=== PATIENT | female | born 1950 | race Caucasian/White ===

== ENCOUNTER 2017-09-25 09:14 | Observation (INO) ==
--- NOTE | 2017-09-25 09:25 | Emergency Department Note ---
Disposition Clinical Impression: UTI (urinary tract infection), Falls, Confusion Disposition: Still a Patient Condition: Fair Referrals: Bao Hauser [Primary Care Provider] - Forms: ED Satisfaction Letter General Adult HPI - General Chief complaint: ED Fall Stated complaint: fall, eye issues Time Seen by Provider: 09/25/17 09:17 Nursing Notes Reviewed: Yes Vital Signs Reviewed: Yes - Related Data Home Medications Medication Instructions Recorded Confirmed Atenolol 100 mg PO DAILY 08/18/16 12/13/16 Ezetimibe [Zetia] 10 mg PO DAILY 08/18/16 12/13/16 Fenofibrate Nanocrystallized 145 mg PO DAILY 08/18/16 12/13/16 [Tricor] Levothyroxine [Synthroid] 50 mcg PO DAILY 08/18/16 12/13/16 OxyCODONE/APAP 10/325 [Percocet 1 tab PO Q6HR PRN 08/18/16 12/13/16 10/325 MG] Rosuvastatin [Crestor] 20 mg PO HS 08/18/16 12/13/16 Sertraline [Zoloft] 100 mg PO DAILY 08/18/16 12/13/16 amLODIPine [Norvasc] 5 mg PO DAILY 08/18/16 12/13/16 hydroCHLOROthiazide 50 mg PO DAILY 08/18/16 12/13/16 [Hydrochlorothiazide] Aspirin [Lo-Dose Aspirin EC] 81 mg PO DAILY 12/13/16 12/13/16 Cholecalciferol (D-3) [Vitamin D] 1,000 unit PO DAILY 12/13/16 12/13/16 Cyanocobalamin (Vitamin B-12) 1,000 mcg PO DAILY 12/13/16 12/13/16 [Vitamin B12] Diclofenac Epolamine [Flector] 1 patch TD Q12H 12/13/16 12/13/16 Previous Rx's Medication Instructions Recorded Azithromycin [Zithromax] 0 mg PO DAILY #6 tablet 08/08/17 Benzonatate [Tessalon] 200 mg PO TID #30 capsule 08/08/17 Promethazine/Codeine 5 ml PO Q8HR PRN 6 Days #120 ml 08/08/17 [Phenergan/Codeine] Allergies Allergy/AdvReac Type Severity Reaction Status Date / Time ciprofloxacin [From Cipro] Allergy Rash Verified 08/08/17 12:49 prednisone Allergy Rash Verified 08/08/17 12:49 Sulfa (Sulfonamide Allergy Rash Verified 08/08/17 12:49 Antibiotics) Past Medical History - Past Medical History Medical history: Reports: CVA, hyperlipidemia, hypertension, thyroid disease Surgical history: Reports: appendectomy, carotid endarterectomy, herniorrhaphy, hysterectomy Psychiatric history: Reports: anxiety, depression ADDICTION SPECIALIST history: Reports: no ADDICTION SPECIALIST history - Social History Smoking Status: Never smoker Smokeless Tobacco Status: No Alcohol use: Reports: none Drug use: Reports: none Course Vital Signs Temperature 97.7 F 09/25/17 09:16 Pulse Rate 80 09/25/17 09:16 Respiratory Rate 18 09/25/17 09:16 Blood Pressure 122/69 09/25/17 09:16 O2 Sat by Pulse Oximetry 96 09/25/17 09:16 Temperature 97.7 F 09/25/17 09:16 Pulse Rate 80 09/25/17 09:16 Respiratory Rate 18 09/25/17 09:16 Blood Pressure 122/69 09/25/17 09:16 O2 Sat by Pulse Oximetry 96 09/25/17 09:28 Oxygen Delivery Oxygen Delivery Room Air Medical Decision Making - MDM Narrative Medical decision making narrative: Chest X-Ray 09/25/17 09:18 IMPRESSION: No acute process. D/ / Mark Harkins MD / Mark Harkins MD Interpreting Provider: Mark Harkins MD Head CT 09/25/17 09:22 IMPRESSION: No acute intracranial abnormality. D/ / Mark Harkins MD / Mark Harkins MD Interpreting Provider: Mark Harkins MD [id number]: Labs are returning except for blood sugar everything looks pretty good there. Waiting on urinalysis chest x-ray and CT are nonacute. 1130 hrs.: Patient does have a UTI also. We started her on antibiotics. We have spoke to her about coming in the hospital she is in agreement, nursing home social worker seen her and said she would qualify for home health care. We will bring her into the hospital status post fall vertigo and UTI. She is in agreement with plan. Hospitalist as accepted patient for admission. - Lab Data Result diagrams: 09/25/17 09:46 09/25/17 09:46 Lab Results 09/25/17 09/25/17 09/25/17 Range/Units 09:25 09:46 09:46 WBC 5.8 (4.3-11.1) K/mcL RBC 4.45 (3.82-4.97) M/mcL Hgb 13.0 (11.5-15.4) g/dL Hct 38.6 (35.3-44.9) % MCV 86.7 (83.0-100.0) fL MCH 29.2 (28.0-33.3) pg MCHC 33.7 (31.6-35.5) g/dL RDW 13.8 (11.5-14.5) % Plt Count 332 (140-400) K/mcL MPV 8.9 L (9.4-12.4) fL Immature Gran % 0.3 (0-4) % Seg Neutrophils % 60.4 % Lymphocytes % 27.5 % Monocytes % 8.3 % Eosinophils % 3.3 % Basophils % 0.2 % Neutrophils # 3.5 (1.6-8.9) K/mcL Lymphocytes # 1.6 (0.6-4.6) K/mcL Monocytes # 0.5 (0.0-1.3) K/mcL Eosinophils # 0.2 (0.0-0.6) K/mcL Basophils # 0.0 (0.0-0.2) K/mcL PT 13.1 H (9.4-12.1) Seconds INR 1.2 APTT 34.2 (26.0-36.0) Seconds Sodium (136-145) mEq/L Potassium (3.5-5.1) mEq/L Chloride (98-107) mEq/L Carbon Dioxide (23-29) mEq/L BUN (8-23) mg/dL Creatinine (0.60-1.20) mg/dL Est GFR ( Amer) (> 60) Est GFR (Non-Af Amer) (> 60) BUN/Creatinine Ratio (6-26) Glucose (70-105) mg/dL POC Glucose 198 H (70-99) mg/dL Calculated Osmolality (280-300) Calcium (8.6-10.3) mg/dL Troponin I (< 0.04) ng/mL TSH (0.340-5.600) mcIU/mL Urine Color (Yellow) Urine Clarity (Clear) Urine pH (5.0-8.0) pH Units Ur Specific [place] (1.010-1.025) Urine Protein (Neg-Trace) mg/dL Urine Glucose (UA) (Normal) mg/dL Urine Ketones (Negative) mg/dL Urine Blood (Negative) Urine Nitrite (Negative) Urine Bilirubin (Negative) Urine Urobilinogen (Normal) mg/dL Ur Leukocyte Esterase (Negative) Urine Microscopic WBC (0-3) per hpf Ur Squamous Epith Cells (None-Few) per lpf Urine Bacteria (None-Few) per hpf Hyaline Casts (None-Few) per lpf Urine Mucus (Few) Ur Culture Indicated? (NO) 09/25/17 09/25/17 Range/Units 09:46 11:15 WBC (4.3-11.1) K/mcL RBC (3.82-4.97) M/mcL Hgb (11.5-15.4) g/dL Hct (35.3-44.9) % MCV (83.0-100.0) fL MCH (28.0-33.3) pg MCHC (31.6-35.5) g/dL RDW (11.5-14.5) % Plt Count (140-400) K/mcL MPV (9.4-12.4) fL Immature Gran % (0-4) % Seg Neutrophils % % Lymphocytes % % Monocytes % % Eosinophils % % Basophils % % Neutrophils # (1.6-8.9) K/mcL Lymphocytes # (0.6-4.6) K/mcL Monocytes # (0.0-1.3) K/mcL Eosinophils # (0.0-0.6) K/mcL Basophils # (0.0-0.2) K/mcL PT (9.4-12.1) Seconds INR APTT (26.0-36.0) Seconds Sodium 137 (136-145) mEq/L Potassium 3.7 (3.5-5.1) mEq/L Chloride 101 (98-107) mEq/L Carbon Dioxide 25 (23-29) mEq/L BUN 15 (8-23) mg/dL Creatinine 0.56 L (0.60-1.20) mg/dL Est GFR ( Amer) > 60 (> 60) Est GFR (Non-Af Amer) > 60 (> 60) BUN/Creatinine Ratio 27 H (6-26) Glucose 182 H (70-105) mg/dL POC Glucose (70-99) mg/dL Calculated Osmolality 289 (280-300) Calcium 9.5 (8.6-10.3) mg/dL Troponin I < 0.03 (< 0.04) ng/mL TSH 2.188 (0.340-5.600) mcIU/mL Urine Color Yellow (Yellow) Urine Clarity Cloudy A (Clear) Urine pH 6.0 (5.0-8.0) pH Units Ur Specific [place] 1.027 H (1.010-1.025) Urine Protein Negative (Neg-Trace) mg/dL Urine Glucose (UA) Normal (Normal) mg/dL Urine Ketones Negative (Negative) mg/dL Urine Blood Negative (Negative) Urine Nitrite Negative (Negative) Urine Bilirubin Negative (Negative) Urine Urobilinogen Normal (Normal) mg/dL Ur Leukocyte Esterase Moderate H (Negative) Urine Microscopic WBC 15-30 H (0-3) per hpf Ur Squamous Epith Cells Few (None-Few) per lpf Urine Bacteria Moderate H (None-Few) per hpf Hyaline Casts None Seen (None-Few) per lpf Urine Mucus Few (Few) Ur Culture Indicated? YES A (NO) Attestation Statement - Attestation Attestation: This documentation is done with the assistance of Dragon dictation. Despite efforts made to ensure accuracy, there may be inaccuracies in medical management trainer or spelling and typographical errors. I examined this patient and my medical decision-making was reviewed with the Resident Physician. I agree with the documented findings, disposition and treatment plan as described except to the extent set forth below. Patient seen and evaluated on arrival with EMS and Dr. Hernandez, I agree with his evaluation management plan, I supervised the care the patient's stay. Patient presents today from home where she lives alone she had 2 falls last 24 hours when she think she tripped over dog though she is uncertain she has had intermittent dizziness since been on any for where from couple days to couple weeks difficult to say with her history medics also stated same. She is also complaining of intermittent chest pain going on and off for a couple weeks versus a couple years. She denies any pain at this time she does have vertiginous symptoms at this time when she moves from the cart over to the bed. She has also had some blurriness in her left eye which she says been on for a few weeks. She states she is also worried that she could have had a stroke here in the past but it is difficult to pin her down on symptoms and nothing was in the last 24 hours. We will do a cardiac workup on her neurologic workup , and involve nursing home social worker in her care and determine best disposition once her testing is back. She is in agreement with this plan.
--- NOTE | 2017-09-25 09:26 | Emergency Department Note ---
Disposition Clinical Impression: Confusion UTI (urinary tract infection) Qualifiers: Urinary tract infection type: site unspecified Hematuria presence: without hematuria Qualified Code(s): N39.0 - Urinary tract infection, site not specified Falls Qualifiers: Encounter type: initial encounter Qualified Code(s): W19.XXXA - Unspecified fall, initial encounter Disposition: Still a Patient Condition: Fair Referrals: Bao Hauser [Primary Care Provider] - Forms: ED Satisfaction Letter Time of Disposition: 11:56 General Adult HPI - General Chief complaint: ED Fall Stated complaint: fall, eye issues Time Seen by Provider: 09/25/17 09:17 Nursing Notes Reviewed: Yes Vital Signs Reviewed: Yes - History of Present Illness HPI Narrative: 67-year-old female presents from home via EMS for evaluation of multiple complaints. 1: Patient has fallen twice today and has a history of falls. She believes her fall today was mechanical in that she tripped over her dog. She denies any head trauma. 2: Patient has been having some lightheadedness. She also notes that she has been deviating to the right with ambulation. She is concerned she may have had a stroke. Patient is having difficulty in pointing duration of onset. This ranges anywhere from several days to several weeks to 1 year. 3: Patient's been having intermittent chest tightness with associated nausea, dyspnea, with intermittent radiation to her left jaw. She is having difficulty in pinpointing the duration of onset. This ranges anywhere from several days to several weeks to 1 year. She remotely followed with her cookie mixer helper, Dr. Maradiaga, when he was up in [place]. 4: Patient states she is having blurry vision of her left eye. She states this is been ongoing for the last several weeks. 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 PMH: Hypertension, hyperlipidemia, hypothyroidism, history of sarcoidosis ROS: Positive: As above. 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 She is not concerned about this today. Negative: Fever, chills, vomiting, palpitations - Related Data Home Medications Medication Instructions Recorded Confirmed Atenolol 100 mg PO DAILY 08/18/16 12/13/16 Ezetimibe [Zetia] 10 mg PO DAILY 08/18/16 12/13/16 Fenofibrate Nanocrystallized 145 mg PO DAILY 08/18/16 12/13/16 [Tricor] Levothyroxine [Synthroid] 50 mcg PO DAILY 08/18/16 12/13/16 OxyCODONE/APAP 10/325 [Percocet 1 tab PO Q6HR PRN 08/18/16 12/13/16 10/325 MG] Rosuvastatin [Crestor] 20 mg PO HS 08/18/16 12/13/16 Sertraline [Zoloft] 100 mg PO DAILY 08/18/16 12/13/16 amLODIPine [Norvasc] 5 mg PO DAILY 08/18/16 12/13/16 hydroCHLOROthiazide 50 mg PO DAILY 08/18/16 12/13/16 [Hydrochlorothiazide] Aspirin [Lo-Dose Aspirin EC] 81 mg PO DAILY 12/13/16 12/13/16 Cholecalciferol (D-3) [Vitamin D] 1,000 unit PO DAILY 12/13/16 12/13/16 Cyanocobalamin (Vitamin B-12) 1,000 mcg PO DAILY 12/13/16 12/13/16 [Vitamin B12] Diclofenac Epolamine [Flector] 1 patch TD Q12H 12/13/16 12/13/16 Previous Rx's Medication Instructions Recorded Azithromycin [Zithromax] 0 mg PO DAILY #6 tablet 08/08/17 Benzonatate [Tessalon] 200 mg PO TID #30 capsule 08/08/17 Promethazine/Codeine 5 ml PO Q8HR PRN 6 Days #120 ml 08/08/17 [Phenergan/Codeine] Allergies Allergy/AdvReac Type Severity Reaction Status Date / Time ciprofloxacin [From Cipro] Allergy Rash Verified 08/08/17 12:49 prednisone Allergy Rash Verified 08/08/17 12:49 Sulfa (Sulfonamide Allergy Rash Verified 08/08/17 12:49 Antibiotics) All systems ED: reviewed and negative except as stated. Review of Systems: As Per HPI Past Medical History - Past Medical History Medical history: Reports: CVA, hyperlipidemia, hypertension, thyroid disease Surgical history: Reports: appendectomy, carotid endarterectomy, herniorrhaphy, hysterectomy Psychiatric history: Reports: anxiety, depression SCHEDULER CONVEYOR history: Reports: no SCHEDULER CONVEYOR history - Social History Smoking Status: Never smoker Smokeless Tobacco Status: No Alcohol use: Reports: none Drug use: Reports: none Physical Exam Vital Signs Reviewed General: Patient is alert, oriented, and in no acute distress. Head: atraumatic, normocephalic Eye: normal appearance, no scleral icterus, no conjunctival injection ENT: mucous membranes moist, normal external ear exam Neck: normal inspection, trachea midline, full ROM. Remote well-healed postsurgical scar on the right side patient's neck. Chest: normal inspection, symmetric chest rise Respiratory: Good respiratory effort. Bilateral breath sounds are clear without wheezing, crackles, or rhonchi. Cardiovascular: Regular rate and rhythm. No clicks, rubs, gallops, or murmors. Normal heart sounds. Abdomen: Bowel sounds present normoactive. Abdomen is soft, nondistended. Diffuse abdominal tenderness. No guarding or rebound. No organomegaly noted. Remote abdominal surgical scar. Musculoskeletal: Spontaneously moving all extremities. Skin: warm, dry, intact. Neuro: Alert and oriented x4. Sensation light touch intact. Psych: Patient's affect is appropriate for situation. Course Course Narrative: EKG dated 09/25/17 at 09:23 interpreted as sinus rhythm with rate of 82. Normal intervals of IN 144, QRS 95, QTC 424. Left axis. LVH. Nonspecific ST-T changes. Compared to previous dated 04/10/2013 showing no acute ischemic changes comparison. CT head and chest x-ray unremarkable per radiology read. Serum hematology is unremarkable. Serum chemistries unremarkable. Urinalysis clinically concerning for urinary tract infection. Discussed the above with the patient. Though she is hard of hearing, she required multiple explanations in lay terms before she understood the situation. She appears more confused now than on initial presentation. She agrees for admission to the hospital for continued evaluation and management. Also recommend mental health social worker involvement. Chest X-Ray 09/25/17 09:18 IMPRESSION: No acute process. D/ / Mark Harkins MD / Mark Harkins MD Interpreting Provider: Mark Harkins MD Head CT 09/25/17 09:22 IMPRESSION: No acute intracranial abnormality. D/ / 09/25/2017 10:45:44 Mark Harkins MD / [email or web address] Interpreting Provider: Mark Harkins MD Vital Signs Temperature 97.7 F 09/25/17 09:16 Pulse Rate 80 09/25/17 09:16 Respiratory Rate 18 09/25/17 09:16 Blood Pressure 122/69 09/25/17 09:16 O2 Sat by Pulse Oximetry 96 09/25/17 09:16 Temperature 97.7 F 09/25/17 09:16 Pulse Rate 80 09/25/17 09:16 Respiratory Rate 18 09/25/17 09:16 Blood Pressure 122/69 09/25/17 09:16 O2 Sat by Pulse Oximetry 96 09/25/17 09:28 Oxygen Delivery Oxygen Delivery Room Air Medical Decision Making - Lab Data Result diagrams: 09/25/17 09:46 09/25/17 09:46 Lab Results 09/25/17 09/25/17 09/25/17 Range/Units 09:25 09:46 09:46 WBC 5.8 (4.3-11.1) K/mcL RBC 4.45 (3.82-4.97) M/mcL Hgb 13.0 (11.5-15.4) g/dL Hct 38.6 (35.3-44.9) % MCV 86.7 (83.0-100.0) fL MCH 29.2 (28.0-33.3) pg MCHC 33.7 (31.6-35.5) g/dL RDW 13.8 (11.5-14.5) % Plt Count 332 (140-400) K/mcL MPV 8.9 L (9.4-12.4) fL Immature Gran % 0.3 (0-4) % Seg Neutrophils % 60.4 % Lymphocytes % 27.5 % Monocytes % 8.3 % Eosinophils % 3.3 % Basophils % 0.2 % Neutrophils # 3.5 (1.6-8.9) K/mcL Lymphocytes # 1.6 (0.6-4.6) K/mcL Monocytes # 0.5 (0.0-1.3) K/mcL Eosinophils # 0.2 (0.0-0.6) K/mcL Basophils # 0.0 (0.0-0.2) K/mcL PT 13.1 H (9.4-12.1) Seconds INR 1.2 APTT 34.2 (26.0-36.0) Seconds Sodium (136-145) mEq/L Potassium (3.5-5.1) mEq/L Chloride (98-107) mEq/L Carbon Dioxide (23-29) mEq/L BUN (8-23) mg/dL Creatinine (0.60-1.20) mg/dL Est GFR ( Amer) (> 60) Est GFR (Non-Af Amer) (> 60) BUN/Creatinine Ratio (6-26) Glucose (70-105) mg/dL POC Glucose 198 H (70-99) mg/dL Calculated Osmolality (280-300) Calcium (8.6-10.3) mg/dL Troponin I (< 0.04) ng/mL TSH (0.340-5.600) mcIU/mL Urine Color (Yellow) Urine Clarity (Clear) Urine pH (5.0-8.0) pH Units Ur Specific [place] (1.010-1.025) Urine Protein (Neg-Trace) mg/dL Urine Glucose (UA) (Normal) mg/dL Urine Ketones (Negative) mg/dL Urine Blood (Negative) Urine Nitrite (Negative) Urine Bilirubin (Negative) Urine Urobilinogen (Normal) mg/dL Ur Leukocyte Esterase (Negative) Urine Microscopic WBC (0-3) per hpf Ur Squamous Epith Cells (None-Few) per lpf Urine Bacteria (None-Few) per hpf Hyaline Casts (None-Few) per lpf Urine Mucus (Few) Ur Culture Indicated? (NO) 09/25/17 09/25/17 Range/Units 09:46 11:15 WBC (4.3-11.1) K/mcL RBC (3.82-4.97) M/mcL Hgb (11.5-15.4) g/dL Hct (35.3-44.9) % MCV (83.0-100.0) fL MCH (28.0-33.3) pg MCHC (31.6-35.5) g/dL RDW (11.5-14.5) % Plt Count (140-400) K/mcL MPV (9.4-12.4) fL Immature Gran % (0-4) % Seg Neutrophils % % Lymphocytes % % Monocytes % % Eosinophils % % Basophils % % Neutrophils # (1.6-8.9) K/mcL Lymphocytes # (0.6-4.6) K/mcL Monocytes # (0.0-1.3) K/mcL Eosinophils # (0.0-0.6) K/mcL Basophils # (0.0-0.2) K/mcL PT (9.4-12.1) Seconds INR APTT (26.0-36.0) Seconds Sodium 137 (136-145) mEq/L Potassium 3.7 (3.5-5.1) mEq/L Chloride 101 (98-107) mEq/L Carbon Dioxide 25 (23-29) mEq/L BUN 15 (8-23) mg/dL Creatinine 0.56 L (0.60-1.20) mg/dL Est GFR ( Amer) > 60 (> 60) Est GFR (Non-Af Amer) > 60 (> 60) BUN/Creatinine Ratio 27 H (6-26) Glucose 182 H (70-105) mg/dL POC Glucose (70-99) mg/dL Calculated Osmolality 289 (280-300) Calcium 9.5 (8.6-10.3) mg/dL Troponin I < 0.03 (< 0.04) ng/mL TSH 2.188 (0.340-5.600) mcIU/mL Urine Color Yellow (Yellow) Urine Clarity Cloudy A (Clear) Urine pH 6.0 (5.0-8.0) pH Units Ur Specific [place] 1.027 H (1.010-1.025) Urine Protein Negative (Neg-Trace) mg/dL Urine Glucose (UA) Normal (Normal) mg/dL Urine Ketones Negative (Negative) mg/dL Urine Blood Negative (Negative) Urine Nitrite Negative (Negative) Urine Bilirubin Negative (Negative) Urine Urobilinogen Normal (Normal) mg/dL Ur Leukocyte Esterase Moderate H (Negative) Urine Microscopic WBC 15-30 H (0-3) per hpf Ur Squamous Epith Cells Few (None-Few) per lpf Urine Bacteria Moderate H (None-Few) per hpf Hyaline Casts None Seen (None-Few) per lpf Urine Mucus Few (Few) Ur Culture Indicated? YES A (NO) NIH Stroke Scale - Level of Consciousness LOC: Alert - LOC Questions LOC Questions: Answers both correctly - LOC Commands LOC Commands: Performs both correctly - Best Gaze Best Gaze: Normal - Visual Visual: No visual loss - Facial Palsy Facial Palsy: Normal - Motor Arms Motor Arm-Left: No drift for 10 seconds Motor Arm-Right: No drift for 10 seconds - Motor Legs Motor Leg-Left: No drift for 5 seconds Motor Leg-Right: No drift for 5 seconds - Limb Ataxia Limb Ataxia: Normal, No Ataxia - Sensory Sensory: Normal - Best Language Best Language: No aphasia - Dysarthria Dysarthria: Normal - Extinction and Inattention Extinction and Inattention: Normal - NIHSS Total Score NIHSS Total Score: 0
[2017-09-25 10:01] LABS: Basophils % 0.2 %; Eosinophils # 0.2 K/mcL (0.0-0.6); Eosinophils % 3.3 %; Hematocrit 38.6 % (35.3-44.9); Immature Granulocytes % 0.3 % (0-4); Lymphocytes # 1.6 K/mcL (0.6-4.6); Lymphocytes % 27.5 %; Mean Corpuscular HGB Conc 33.7 g/dL (31.6-35.5); Mean Corpuscular Hemoglobin 29.2 pg (28.0-33.3); Mean Corpuscular Volume 86.7 fL (83.0-100.0); Mean Platelet Volume 8.9 fL (9.4-12.4); Monocytes # 0.5 K/mcL (0.0-1.3); Monocytes % 8.3 %; Neutrophils # 3.5 K/mcL (1.6-8.9); Platelet Count 332 K/mcL (140-400); Red Blood Count 4.45 M/mcL (3.82-4.97); Red Cell Distribution Width 13.8 % (11.5-14.5); Segmented Neutrophils % 60.4 %
[2017-09-25 10:07] LABS: INR 1.2; Prothrombin Time 13.1 Seconds (9.4-12.1)
[2017-09-25 10:10] LABS: Activated Partial Thrombo Time 34.2 Seconds (26.0-36.0)
[2017-09-25 10:21] LABS: BUN/Creatinine Ratio 27 (6-26); Blood Urea Nitrogen 15 mg/dL (8-23); Calcium 9.5 mg/dL (8.6-10.3); Carbon Dioxide 25 mEq/L (23-29); Chloride 101 mEq/L (98-107); Glucose 182 mg/dL (70-105); Osmolality,Calculated 289 (280-300); Potassium 3.7 mEq/L (3.5-5.1); Sodium 137 mEq/L (136-145); eGFR For African Americans > 60 (> 60); eGFR For Non-African Americans > 60 (> 60)
[2017-09-25 10:22] LABS: Troponin I < 0.03 ng/mL (< 0.04)
[2017-09-25 10:35] LABS: Thyroid Stimulating Hormone 2.188 mcIU/mL (0.340-5.600)
[2017-09-25 11:24] LABS: Bilirubin,Urine Negative (Negative); Blood,Urine Negative (Negative); Clarity,Urine Cloudy (Clear); Color,Urine Yellow (Yellow); Glucose,Urine (UA) Normal (Normal); Ketones,Urine Negative (Negative); Leukocyte Esterase,Urine Moderate (Negative); Nitrite,Urine Negative (Negative); Protein,Urine Negative (Neg-Trace); Specific Gravity,Urine 1.027 (1.010-1.025); Urobilinogen,Urine Normal (Normal)
[2017-09-25 11:26] LABS: Hyaline Casts,Urine None Seen per lpf (None-Few); WBC,Urine 15-30 per hpf (0-3)
[2017-09-25 11:42] LABS: Mucus,Urine Few (Few); Squamous Epithelial Cell,Urine Few per lpf (None-Few)
[2017-09-25 11:45] LABS: Bacteria,Urine Moderate per hpf (None-Few)
[2017-09-25] MEDS ORDERED: cefTRIAXone 2,000 MG in Water for inj. (sterile) 20 ML 20 ML IVP ONE (12:02)
--- NOTE | 2017-09-25 13:33 | Internal Med History&Physical ---
Date of Encounter: 09/25/17 Time of Encounter: 11:00 Internal Medicine - H&P: HPI Chief complaint: Dizziness/falls Admitted From: Home History of present illness: Patient is a 67-year-old female with past medical history significant for sarcoidosis, hypertension, hyperlipidemia, and hypothyroid who presents to the ER on 09/25/17 due to dizziness and falls. Patient states that for approximately 4 weeks she has experienced dizziness and falls. Patient also reports of blurred vision in her left eye which she sees debeader for as an outpatient. In addition patient also reports of having headaches during this time period. She was concerned and decided come to the ER for evaluation. In the ER labs are unremarkable and urinalysis showed evidence of pyuria but patient is asymptomatic. CT of the head was also negative. Patient will be admitted to medical surgical floor for falls with dizziness Past Med Surg Social Fam HX - Past Medical History Medical history: CVA, hyperlipidemia, hypertension, thyroid disease Psychiatric history: anxiety, depression - Past Surgical History Surgical History: appendectomy, carotid endarterectomy, herniorrhaphy, hysterectomy Additional surgical history: abdominal hernia repair x5, Lap Sandro - Social History Smoking Status: Never smoker Smokeless Tobacco Status: No Alcohol use: none Drug use: none - Family History Mother Living Status: Hx Family Cardiac Disorders: Yes Father Living Status: Hx Family Cardiac Disorders: Yes Sister Hx Family Cardiac Disorders: Yes Brother Hx Family Cardiac Disorders: Yes Internal Medicine - H&P: Meds Atenolol 100 mg PO DAILY 08/18/16 [History] Ezetimibe [Zetia] 10 mg PO DAILY 08/18/16 [History] Levothyroxine [Synthroid] 50 mcg PO DAILY 08/18/16 [History] OxyCODONE/APAP 10/325 [Percocet 10/325 MG] 1 tab PO Q6HR PRN 08/18/16 [History] Rosuvastatin [Crestor] 20 mg PO HS 08/18/16 [History] Sertraline [Zoloft] 100 mg PO DAILY 08/18/16 [History] amLODIPine [Norvasc] 5 mg PO DAILY 08/18/16 [History] hydroCHLOROthiazide [Hydrochlorothiazide] 50 mg PO DAILY 08/18/16 [History] Aspirin [Lo-Dose Aspirin EC] 81 mg PO DAILY 12/13/16 [History] Cholecalciferol (D-3) [Vitamin D] 1,000 unit PO DAILY 12/13/16 [History] Cyanocobalamin (Vitamin B-12) [Vitamin B12] 1,000 mcg PO DAILY 12/13/16 [History ] Fenofibrate,Micronized [Antara] 200 mg PO DAILY 09/25/17 [History] 3 Allergy/AdvReac Type Severity Reaction Status Date / Time ciprofloxacin [From Cipro] Allergy Rash Verified 09/25/17 13:29 prednisone Allergy Rash Verified 09/25/17 13:29 Sulfa (Sulfonamide Allergy Rash Verified 09/25/17 13:29 Antibiotics) All Systems PM: A 10-system review of systems was performed and is negative for pertinent findings except as documented above in the HPI. - Constitutional Vitals: Temp Pulse Resp BP Pulse Ox 97.7 F 80 18 122/69 96 09/25/17 09:16 09/25/17 09:16 09/25/17 09:16 09/25/17 09:16 09/25/17 09:28 General appearance: Present: A&O X 3, no acute distress - Head Head exam: Present: atraumatic - Eye Pupils: Present: unequal - ENT ENT exam: Present: mucous membranes moist - Respiratory Respiratory exam: Present: CTAB. Absent: accessory muscle use, rales, rhonchi, wheezes - Cardiovascular Cardiovascular exam: Present: RRR, +S1, +S2. Absent: diastolic murmur, gallop, rubs, systolic murmur - GI/Abdominal GI/Abdominal exam: Present: normal bowel sounds, soft, no peritoneal signs. Absent: distended, tenderness - Extremities Exam Extremities exam: Absent: pedal edema - Neurological Exam Neurological exam: Present: oriented X3 - Psychiatric Psychiatric exam: Present: normal mood - Skin Skin exam: Present: normal color Internal Med - H&P Results - Labs CBC & Chem 7: 09/25/17 09:46 09/25/17 09:46 - Assessment and plan (1) Falls Current Visit: Yes Status: Acute Assessment and plan: Patient reports of multiple falls with dizziness CT of the head negative Due to patient's dizziness and report of blurred vision/headaches, will order MRI of brain Consult physical therapy for evaluation of falls Also monitor on telemetry Qualifiers: Encounter type: initial encounter Qualified Code(s): W19.XXXA - Unspecified fall, initial encounter (2) Nonhealing surgical wound Current Visit: No Status: Acute Assessment and plan: Will consult wound care Qualifiers: Encounter type: initial encounter Qualified Code(s): T81.89XA - Other complications of procedures, not elsewhere classified, initial encounter (3) Hypothyroid Current Visit: Yes Status: Acute Assessment and plan: Continue levothyroxine Qualifiers: Hypothyroidism type: unspecified Qualified Code(s): E03.9 - Hypothyroidism , unspecified (4) Hyperlipidemia Current Visit: Yes Status: Acute Assessment and plan: Continue statin Qualifiers: Hyperlipidemia type: unspecified Qualified Code(s): E78.5 - Hyperlipidemia , unspecified (5) Mood disorder Current Visit: Yes Status: Acute Assessment and plan: Continue SSRI (6) Hypertension Current Visit: No Status: Acute Assessment and plan: Continue Norvasc and atenolol Qualifiers: Hypertension type: essential hypertension Qualified Code(s): I10 - Essential (primary) hypertension (7) DVT prophylaxis Current Visit: No Status: Acute Assessment and plan: Subcutaneous heparin - Time Spent With Patient Total time spent is greater than 50% in coordination of care (as documented) at patient's floor/unit and/or counseling patient:
[2017-09-25] MEDS ORDERED: Naloxone 0.4 MG/ML INJ IVP PRN (14:34)
--- NOTE | 2017-09-25 18:41 | Electrocardiograph Report ---
[place] [id number] Test Date: 2017-09-25 Pat Name: Ana Rosa Main Department: 104 Room: [facility] Gender: F Buffer Chrome: [facility] : 1950 Requested By: Serjio Franco Order Number: [id number] Reading MD: Ismael Dooley Measurements Intervals [place] Rate: 82 P: -26 [place]: 144 QRS: -7 QRSD: 95 T: 57 QT: 385 QTc: 424 Interpretive Statements SINUS RHYTHM VOLTAGE CRITERIA FOR LVH Electronically Signed On 09-25-2017 18:40:01 EDT by Ismael Dooley
[2017-09-25] MEDS: *HR* Heparin 5,000 UNIT/ML VIAL SQ SCH (21:16)
[2017-09-25] MEDS: *HR* OxyCODONE/APAP 10/325 TABLET PO PRN (21:16)
[2017-09-26] MEDS: *HR* Heparin 5,000 UNIT/ML VIAL SQ SCH ×3 (05:24→21:25)
[2017-09-26 06:11] LABS: Basophils % 0.2 %; Eosinophils # 0.2 K/mcL (0.0-0.6); Eosinophils % 4.5 %; Hematocrit 40.6 % (35.3-44.9); Hemoglobin 13.4 g/dL (11.5-15.4); Immature Granulocytes % 0.2 % (0-4); Lymphocytes # 1.7 K/mcL (0.6-4.6); Lymphocytes % 37.1 %; Mean Corpuscular Hemoglobin 29.2 pg (28.0-33.3); Mean Corpuscular Volume 88.5 fL (83.0-100.0); Monocytes # 0.5 K/mcL (0.0-1.3); Monocytes % 9.9 %; Neutrophils # 2.2 K/mcL (1.6-8.9); Platelet Count 296 K/mcL (140-400); Red Blood Count 4.59 M/mcL (3.82-4.97); Segmented Neutrophils % 48.1 %
[2017-09-26 06:26] LABS: BUN/Creatinine Ratio 30 (6-26); Blood Urea Nitrogen 17 mg/dL (8-23); Calcium 9.3 mg/dL (8.6-10.3); Carbon Dioxide 26 mEq/L (23-29); Chloride 103 mEq/L (98-107); Glucose 139 mg/dL (70-105); Osmolality,Calculated 290 (280-300); Potassium 3.9 mEq/L (3.5-5.1); Sodium 138 mEq/L (136-145); eGFR For African Americans > 60 (> 60); eGFR For Non-African Americans > 60 (> 60)
[2017-09-26] MEDS: Aspirin Enteric Coated 81 MG Tablet PO SCH (08:31)
[2017-09-26] MEDS: Fenofibrate 54 MG TABLET PO SCH (08:31)
[2017-09-26] MEDS: amLODIPine 5 MG TABLET PO SCH (08:31)
[2017-09-26] MEDS: Cyanocobalamin (B-12) 1,000 MCG TABLET PO SCH (08:31)
[2017-09-26] MEDS: Cholecalciferol (D-3) 1,000 UNIT TABLET PO SCH (08:31)
[2017-09-26] MEDS: *HR* OxyCODONE/APAP 10/325 TABLET PO PRN (08:32)
[2017-09-26] MEDS: hydroCHLOROthiazide 25 MG TABLET PO SCH (08:32)
[2017-09-26] MEDS ORDERED: NON-FORMULARY MEDICATION 1 EACH EACH (Ezetimibe [Zetia] 10 MG) PO SCH (09:00)
--- NOTE | 2017-09-26 16:58 | Internal Med Progress Note ---
Date of Encounter: 09/26/17 Time of Encounter: 11:10 - Assessment and plan (1) Nonhealing surgical wound Current Visit: Yes Status: Acute Assessment and plan: Wound care consulted. Qualifiers: Encounter type: initial encounter Qualified Code(s): T81.89XA - Other complications of procedures, not elsewhere classified, initial encounter (2) Hypertension Current Visit: Yes Status: Chronic Assessment and plan: Continue Norvasc and atenolol. Chronic and stable. Qualifiers: Hypertension type: essential hypertension Qualified Code(s): I10 - Essential (primary) hypertension (3) DVT prophylaxis Current Visit: Yes Status: Acute Assessment and plan: Heparin SQ. (4) Falls Current Visit: Yes Status: Acute Assessment and plan: Patient reports of multiple falls with dizziness and SOB. Reports 2-4 falls daily for 6 months. She reports that he legs get weak and she falls. CT of the head negative MRI brain shows patchy areas of small vessel ischemic change bilaterally with multiple old infarcts in no acute infarct or acute hemorrhage. Consult physical therapy for evaluation of falls, still pending. Telemetry Echo. Qualifiers: Encounter type: initial encounter Qualified Code(s): W19.XXXA - Unspecified fall, initial encounter (5) Hypothyroid Current Visit: Yes Status: Acute Assessment and plan: Continue levothyroxine Qualifiers: Hypothyroidism type: unspecified Qualified Code(s): E03.9 - Hypothyroidism , unspecified (6) Hyperlipidemia Current Visit: Yes Status: Chronic Assessment and plan: Continue home dose of statin. Qualifiers: Hyperlipidemia type: unspecified Qualified Code(s): E78.5 - Hyperlipidemia , unspecified (7) Mood disorder Current Visit: Yes Status: Acute Assessment and plan: Continue home medications. - Time Spent With Patient Total time spent is greater than 50% in coordination of care (as documented) at patient's floor/unit and/or counseling patient: less than 15 minutes - Subjective Interval history: Patient was seen and assessed at bedside 11:10 AM. She is alert, awake, talkative. Patient reports that she has been following 2-4 times a day intermittently for the last 6 months. She reports that prior to the fall should become short of breath and dizzy her legs get weak and a cough from under her. She reports chronic insomnia and states that she gets no relief from any kind a sleep aid or changes in sleep hygiene practices. I discussed patient safety at home, she states that she is fine at home she is not getting injured from the falls. She reports that she has a small dog that she cares for at home, as well. She states that she is not going to go anywhere for rehabilitation and that home health/home PT does nothing for her. Pt speaks at length about her pain medication and what has not worked for her. - Constitutional Vitals: Temp Pulse Resp BP Pulse Ox 98.6 F 66 17 125/77 95 09/26/17 16:19 09/26/17 16:19 09/26/17 16:19 09/26/17 16:19 09/26/17 16:19 General appearance: Present: cooperative, A&O X 3, pleasant, no acute distress, answers questions appropriately - Head Head exam: Present: atraumatic, normal inspection, normocephalic - Eye Eye exam: Present: normal appearance, conjuntiva pink, sclera anicteric - Neck Neck exam general surgery: Present: normal inspection, supple, trachea midline. Absent: lymphadenopathy, tenderness - Respiratory Respiratory exam: Present: CTAB. Absent: accessory muscle use, rales, rhonchi, wheezes - Cardiovascular Cardiovascular exam: Present: RRR, +S1, +S2. Absent: diastolic murmur, gallop, rubs, systolic murmur - GI/Abdominal GI/Abdominal exam: Present: normal bowel sounds, soft. Absent: distended, hepatomegaly, tenderness - Extremities Exam Extremities exam: Present: normal capillary refill, warm, radial pulses palpable and symmetrical. Absent: calf tenderness, cyanotic, pedal edema, tenderness - Neurological Exam Neurological exam: Present: alert, oriented X3, no focal deficits. Absent: facial droop, speech deficit - Skin Skin exam: Present: dry, intact, normal color, warm. Absent: rash Internal Medicine: Result - Labs CBC & Chem 7: 09/26/17 05:57 09/26/17 05:57 Labs: Short CBC 09/26/17 Range/Units 05:57 WBC 4.7 (4.3-11.1) K/mcL Hgb 13.4 (11.5-15.4) g/dL Hct 40.6 (35.3-44.9) % Plt Count 296 (140-400) K/mcL Neutrophils # 2.2 (1.6-8.9) K/mcL BMP 09/26/17 05:57 Sodium 138 Potassium 3.9 Chloride 103 Carbon Dioxide 26 BUN 17 Creatinine 0.57 L Glucose 139 H Calcium 9.3 - ABG Interpretation ABG results: PT/INR, D-dimer PT 13.1 Seconds (9.4-12.1) H 09/25/17 09:46 - Impressions Impressions Brain MRI 09/25/17 14:42 IMPRESSION: Patchy areas of small vessel ischemic change bilaterally with multiple old infarcts No acute infarct or acute hemorrhage. D/ / Heladio Kenny / Heladio Kenny Interpreting Provider: Heladio Kenny Consult Discharge Plan - Plan Referrals: Bao Hauser [Primary Care Provider] -
[2017-09-27 05:26] LABS: Basophils % 0.4 %; Eosinophils # 0.2 K/mcL (0.0-0.6); Eosinophils % 3.8 %; Hematocrit 39.2 % (35.3-44.9); Hemoglobin 12.9 g/dL (11.5-15.4); Immature Granulocytes % 0.2 % (0-4); Lymphocytes # 2.4 K/mcL (0.6-4.6); Lymphocytes % 42.7 %; Mean Corpuscular HGB Conc 32.9 g/dL (31.6-35.5); Mean Corpuscular Hemoglobin 28.8 pg (28.0-33.3); Mean Corpuscular Volume 87.5 fL (83.0-100.0); Mean Platelet Volume 9.3 fL (9.4-12.4); Monocytes # 0.5 K/mcL (0.0-1.3); Monocytes % 8.7 %; Neutrophils # 2.5 K/mcL (1.6-8.9); Platelet Count 286 K/mcL (140-400); Red Blood Count 4.48 M/mcL (3.82-4.97); Red Cell Distribution Width 13.9 % (11.5-14.5); Segmented Neutrophils % 44.2 %
[2017-09-27 05:42] LABS: BUN/Creatinine Ratio 27 (6-26); Blood Urea Nitrogen 15 mg/dL (8-23); Calcium 9.3 mg/dL (8.6-10.3); Carbon Dioxide 27 mEq/L (23-29); Chloride 101 mEq/L (98-107); Glucose 129 mg/dL (70-105); Osmolality,Calculated 285 (280-300); Potassium 3.7 mEq/L (3.5-5.1); Sodium 136 mEq/L (136-145); eGFR For African Americans > 60 (> 60); eGFR For Non-African Americans > 60 (> 60)
[2017-09-27] MEDS: *HR* Heparin 5,000 UNIT/ML VIAL SQ SCH (06:01)
[2017-09-27] MEDS: Aspirin Enteric Coated 81 MG Tablet PO SCH (08:42)
[2017-09-27] MEDS: amLODIPine 5 MG TABLET PO SCH (08:42)
[2017-09-27] MEDS: Cyanocobalamin (B-12) 1,000 MCG TABLET PO SCH (08:43)
[2017-09-27] MEDS: Fenofibrate 54 MG TABLET PO SCH (08:43)
[2017-09-27] MEDS: Cholecalciferol (D-3) 1,000 UNIT TABLET PO SCH (08:43)
[2017-09-27] MEDS: hydroCHLOROthiazide 25 MG TABLET PO SCH (08:43)
[2017-09-27 11:24] VITALS: BP 126/72
--- NOTE | 2017-09-27 13:41 | Discharge Summary ---
- NOTES TO OUTPATIENT PROVIDER Notes to Outpatient Provider: Pt was admitted for evaluation of requent falls. Pt states that she is not going to rehab or to a custodial and is declining to stay for PT/OT evaluation tomorrow. Recommend that PCP write rx for outpatient rehab. Workup was negative including brain MRI. Likely cause is deconditioning and pt states that she uses a walker and sometimes trips on her dog. Orders not resulted at time of discharge: Pending orders 09/28/17 04:00 Basic Metabolic Panel AM 0400 Complete Blood Count [HEME] AM 0400 Date of Encounter: 09/27/17 Time of Encounter: 11:55 - Discharge Diagnosis (1) Nonhealing surgical wound Priority: Secondary Status: Acute Assessment and Plan: Wound care consulted. Pt is being discharged today per her request and can follow up with PCP after discharge. Qualifiers: Encounter type: initial encounter Qualified Code(s): T81.89XA - Other complications of procedures, not elsewhere classified, initial encounter (2) Hypertension Priority: Secondary Status: Chronic Assessment and Plan: Continue Norvasc and atenolol. Stable and WNL Qualifiers: Hypertension type: essential hypertension Qualified Code(s): I10 - Essential (primary) hypertension (3) DVT prophylaxis Priority: Secondary Status: Acute Assessment and Plan: Heparin SQ. Pt has been ambulatory. (4) Falls Priority: Secondary Status: Acute Assessment and Plan: CT of the head negative MRI brain shows patchy areas of small vessel ischemic change bilaterally with multiple old infarcts in no acute infarct or acute hemorrhage. Orthostatic vitals signs are negative, labs are stable. Pt has decided that she does not want to stay for PT/OT evaluation and states that she refuses to go to to rehab and that PT is "useless". She denies chest pain or SOB prior to falls, states that she gets dizzy and sometimes has mechinical falls. Pt states that she is going to live at her daughter's house for the next month and is going to follow up with PCP. Recommend PCP start PT outpatient if pt is amenable. Pt has a walker at home and we discussed safety at home to avoid falls. . Qualifiers: Encounter type: initial encounter Qualified Code(s): W19.XXXA - Unspecified fall, initial encounter (5) Hypothyroid Priority: Secondary Status: Acute Assessment and Plan: Continue levothyroxine Qualifiers: Hypothyroidism type: unspecified Qualified Code(s): E03.9 - Hypothyroidism , unspecified (6) Hyperlipidemia Priority: Secondary Status: Chronic Assessment and Plan: Chronic. Continue statin. Qualifiers: Hyperlipidemia type: unspecified Qualified Code(s): E78.5 - Hyperlipidemia , unspecified (7) Mood disorder Priority: Secondary Status: Chronic Assessment and Plan: Continue home medications. Hospital course: Ms. Main is a 67 year old female with PMH of hydronephrosis, urolithiasis, hypertension, history of CVA,, hypothyroidism, hyperlipidemia, mood disorder. Patient was admitted for increasingly frequent falls at home. Falls over the last 6 months. She reports sometimes they are mechanical falls and sometimes she feels dizzy and her legs give out from under her. Her brain MRI was negative for any acute infarct or acute hemorrhage. Head CT is also negative. Chest x-ray Shows no acute process. Lungs are stable and within normal limits, vitals are stable. At this time, there is unclear etiology for her frequent falls. Patient declined staying for physical therapy and occupational therapy evaluation and states that she will not go to rehabilitation and does not want to attend physical therapy because it is "useless". Patient is alert, awake, oriented, answers questions appropriately and physical exam is unremarkable. Patient reports that her daughter is a schoolteacher and that she is going to go stay for her for the next month and can be assisted with ADLs and walking. Patient is appropriate for discharge. Discharge discussed with: patient, nurse - Time Spent with Patient Total time spent providing and/or coordinating discharge services: Less than 30 minutes - Discharge Medications Home Medications: Atenolol 100 mg PO DAILY 08/18/16 [History] Ezetimibe [Zetia] 10 mg PO DAILY 08/18/16 [History] Levothyroxine [Synthroid] 50 mcg PO DAILY 08/18/16 [History] OxyCODONE/APAP 10/325 [Percocet 10/325 MG] 1 tab PO Q6HR PRN 08/18/16 [History] Rosuvastatin [Crestor] 20 mg PO HS 08/18/16 [History] Sertraline [Zoloft] 100 mg PO DAILY 08/18/16 [History] amLODIPine [Norvasc] 5 mg PO DAILY 08/18/16 [History] hydroCHLOROthiazide [Hydrochlorothiazide] 50 mg PO DAILY 08/18/16 [History] Aspirin [Lo-Dose Aspirin EC] 81 mg PO DAILY 12/13/16 [History] Cholecalciferol (D-3) [Vitamin D] 1,000 unit PO DAILY 12/13/16 [History] Cyanocobalamin (Vitamin B-12) [Vitamin B12] 1,000 mcg PO DAILY 12/13/16 [History ] Fenofibrate,Micronized [Antara] 200 mg PO DAILY 09/25/17 [History] Allergies/Adverse Reactions: 3 Allergy/AdvReac Type Severity Reaction Status Date / Time ciprofloxacin [From Cipro] Allergy Rash Verified 09/25/17 13:29 prednisone Allergy Rash Verified 09/25/17 13:29 Sulfa (Sulfonamide Allergy Rash Verified 09/25/17 13:29 Antibiotics) Date of admission: 09/25/17 12:31 Primary care physician: Bao Hauser Consults: 09/25/17 13:29 Consult to Invasive Line Access Team [CONS] Routine Reason for Consult: difficult access Line Type: EPIV 09/25/17 14:45 Consult to Physical Therapy [CONS] Routine Comment: Evaluate, develop and implement POC Reason for Consult: Recurrent falls Does patient have active BEDREST order?: No Is patient medically & hemodynamically stable?: Yes Patient assessed for mobility or mobilized this visit?: Yes 09/25/17 14:46 Consult to Wound Care [CONS] Routine Reason for Consult: Abdominal wound care Call Completed: No 09/25/17 15:17 Consult to Time Buyer [CONS] Routine Reason for SW Consult: Discahrge planning, mulitple falls Discharging clinician: Abbey Kenney Anticipated date of discharge: 09/27/17 - Constitutional Vitals: Temp Pulse Resp BP Pulse Ox 98.0 F 63 18 126/72 96 09/27/17 11:23 09/27/17 11:23 09/27/17 11:23 09/27/17 11:23 09/27/17 11:23 General appearance: Present: cooperative, A&O X 3, pleasant, no acute distress, answers questions appropriately - Head Head exam: Present: atraumatic, normal inspection, normocephalic - Eye Eye exam: Present: normal appearance, conjuntiva pink, sclera anicteric - Neck Neck exam general surgery: Present: supple, trachea midline. Absent: lymphadenopathy, tenderness - Respiratory Respiratory exam: Present: decreased breath sounds, CTAB. Absent: accessory muscle use, rales, respiratory distress, rhonchi, wheezes - Cardiovascular Cardiovascular exam: Present: RRR, +S1, +S2. Absent: diastolic murmur, gallop, rubs, systolic murmur - GI/Abdominal GI/Abdominal exam: Present: normal bowel sounds, soft. Absent: distended, hepatomegaly, tenderness - Extremities Exam Extremities exam: Present: normal capillary refill, normal inspection, warm, radial pulses palpable and symmetrical. Absent: calf tenderness, cyanotic, pedal edema, tenderness - Neurological Exam Neurological exam: Present: alert, oriented X3, no focal deficits. Absent: facial droop, speech deficit - Skin Skin exam: Present: dry, intact, normal color, warm. Absent: rash - Patient Status Disposition: Home, Self-Care Condition: Good Functional capacity at discharge: uses cane/walker Overall status at discharge: patient is back to baseline - Discharge Instructions Follow Up With: Bao Hauser [Primary Care Provider] - Additional Instructions: Please follow up with PCP in the next 7-10 days for a recheck and to discuss outpatient physical therapy. Continue home medications. Resume your normal medications Return to your normal diet and activities as tolerated. Use your walker, make sure that your paths are not cluttered, and get up slowly from sitting or lying. If your symptoms start again, return to the ER. - Diet and Activity Activity: as per physical therapy, increase activity as tolerated Diet: diabetic diet, low fat, low cholesterol
== END 2017-09-27 14:49 | disposition home or self-care (01) ==
LOC: 3BNU 09:14 → EMEROO 09:14 → 3BNU 13:41
PROVIDERS: ADMIT Hospitalist; ATTEND Hospitalist

== ENCOUNTER 2019-01-31 10:48 | Inpatient (IN) ==
[2019-01-31] MEDS ORDERED: Isovue-370 500 ML BOTTLE IVP ONE (11:33)
[2019-01-31] MEDS ORDERED: Morphine Sulfate 2 MG/ML SYRINGE IVP ONE (11:34)
[2019-01-31] MEDS ORDERED: Ondansetron 4 MG/2 ML VIAL IVP ONE ×2 (11:34→13:38)
[2019-01-31 12:35] LABS: Basophils % 0.3 %; Eosinophils # 0.2 K/mcL (0.0-0.6); Eosinophils % 3.4 %; Hematocrit 42.4 % (35.3-44.9); Hemoglobin 13.7 g/dL (11.5-15.4); Immature Granulocytes % 0.3 % (0-4); Lymphocytes % 30.3 %; Mean Corpuscular HGB Conc 32.3 g/dL (31.6-35.5); Mean Corpuscular Hemoglobin 29.9 pg (28.0-33.3); Mean Corpuscular Volume 92.6 fL (83.0-100.0); Mean Platelet Volume 8.7 fL (9.4-12.4); Monocytes # 0.5 K/mcL (0.0-1.3); Monocytes % 7.9 %; Neutrophils # 3.7 K/mcL (1.6-8.9); Platelet Count 316 K/mcL (140-400); Red Blood Count 4.58 M/mcL (3.82-4.97); Red Cell Distribution Width 13.3 % (11.5-14.5); Segmented Neutrophils % 57.8 %; White Blood Count 6.4 K/mcL (4.3-11.1)
[2019-01-31 12:51] LABS: BUN/Creatinine Ratio 19 (6-26); Blood Urea Nitrogen 11 mg/dL (8-23); Calcium 9.6 mg/dL (8.6-10.3); Carbon Dioxide 22 mEq/L (23-29); Chloride 106 mEq/L (98-107); Glucose 118 mg/dL (70-105); Osmolality,Calculated 284 (280-300); Potassium 3.9 mEq/L (3.5-5.1); Sodium 137 mEq/L (136-145); eGFR For African Americans > 60 (> 60); eGFR For Non-African Americans > 60 (> 60)
[2019-01-31] MEDS ORDERED: 0.9 % Sodium Chloride 1,000 ML ONE (13:28)
[2019-01-31] MEDS ORDERED: Ondansetron 4 MG/2 ML VIAL ONE (13:38)
[2019-01-31] MEDS ORDERED: Piperacillin/Tazobactam 3.375 GM in 0.9 % Sodium Chloride Mini Bag 100 ML IVPB ONE (14:28)
[2019-01-31] MEDS ORDERED: Naloxone 0.4 MG/ML INJ IVP PRN (16:49)
[2019-01-31] MEDS ORDERED: 0.9 % Sodium Chloride 1,000 ML IVC SCH (17:00)
[2019-01-31] MEDS: *HR* Heparin 5,000 UNIT/ML VIAL SQ SCH (18:52)
[2019-01-31] MEDS: *HR* OxyCODONE/APAP 10/325 TABLET PO PRN (21:06)
[2019-02-01] MEDS: Piperacillin/Tazobactam 3.375 GM in 0.9 % Sodium Chloride Mini Bag 100 ML IVPB SCH ×4 (01:51→23:31)
[2019-02-01] MEDS: *HR* Heparin 5,000 UNIT/ML VIAL SQ SCH ×2 (05:21→17:25)
[2019-02-01] MEDS: *HR* OxyCODONE/APAP 10/325 TABLET PO PRN (05:22)
[2019-02-01 06:02] LABS: Basophils % 0.4 %; Eosinophils # 0.3 K/mcL (0.0-0.6); Eosinophils % 5.6 %; Hematocrit 36.8 % (35.3-44.9); Hemoglobin 12.4 g/dL (11.5-15.4); Lymphocytes % 37.4 %; Mean Corpuscular HGB Conc 33.7 g/dL (31.6-35.5); Mean Corpuscular Hemoglobin 29.7 pg (28.0-33.3); Mean Corpuscular Volume 88.2 fL (83.0-100.0); Mean Platelet Volume 8.9 fL (9.4-12.4); Monocytes # 0.4 K/mcL (0.0-1.3); Monocytes % 7.6 %; Neutrophils # 2.7 K/mcL (1.6-8.9); Platelet Count 311 K/mcL (140-400); Red Blood Count 4.17 M/mcL (3.82-4.97); Red Cell Distribution Width 13.3 % (11.5-14.5); White Blood Count 5.4 K/mcL (4.3-11.1)
[2019-02-01 06:19] LABS: BUN/Creatinine Ratio 21 (6-26); Blood Urea Nitrogen 13 mg/dL (8-23); Calcium 8.9 mg/dL (8.6-10.3); Carbon Dioxide 23 mEq/L (23-29); Chloride 105 mEq/L (98-107); Glucose 138 mg/dL (70-105); Magnesium 1.9 mg/dL (1.6-2.6); Osmolality,Calculated 286 (280-300); Phosphorous 3.5 mg/dL (2.7-4.5); Sodium 137 mEq/L (136-145); eGFR For African Americans > 60 (> 60); eGFR For Non-African Americans > 60 (> 60)
[2019-02-01] MEDS: Fenofibrate 54 MG TABLET PO SCH (08:04)
[2019-02-01] MEDS: Cholecalciferol (D-3) 1,000 UNIT (25MCG) TABLET PO SCH (08:04)
[2019-02-01] MEDS: Cyanocobalamin (B-12) 1,000 MCG TABLET PO SCH (08:05)
[2019-02-01] MEDS: amLODIPine 5 MG TABLET PO SCH (08:05)
[2019-02-01] MEDS: hydroCHLOROthiazide 25 MG TABLET PO SCH (08:05)
[2019-02-01] MEDS ORDERED: NON-FORMULARY MEDICATION 1 EACH EACH (Ezetimibe [Zetia] 10 MG) PO SCH (09:00)
[2019-02-02 01:45] LABS: Hemoglobin 12.2 g/dL (11.5-15.4); Mean Corpuscular HGB Conc 33.9 g/dL (31.6-35.5); Mean Corpuscular Hemoglobin 29.4 pg (28.0-33.3); Mean Corpuscular Volume 86.7 fL (83.0-100.0); Mean Platelet Volume 9.1 fL (9.4-12.4); Platelet Count 294 K/mcL (140-400); Red Blood Count 4.15 M/mcL (3.82-4.97); White Blood Count 5.3 K/mcL (4.3-11.1)
[2019-02-02 01:53] LABS: BUN/Creatinine Ratio 20 (6-26); Blood Urea Nitrogen 12 mg/dL (8-23); Calcium 9.1 mg/dL (8.6-10.3); Carbon Dioxide 24 mEq/L (23-29); Chloride 102 mEq/L (98-107); Glucose 113 mg/dL (70-105); Osmolality,Calculated 285 (280-300); Potassium 3.5 mEq/L (3.5-5.1); Sodium 137 mEq/L (136-145); eGFR For African Americans > 60 (> 60); eGFR For Non-African Americans > 60 (> 60)
[2019-02-02] MEDS: *HR* OxyCODONE/APAP 10/325 TABLET PO PRN ×2 (04:28→21:10)
[2019-02-02] MEDS: *HR* Heparin 5,000 UNIT/ML VIAL SQ SCH ×2 (05:29→17:31)
[2019-02-02] MEDS: Fenofibrate 54 MG TABLET PO SCH (09:21)
[2019-02-02] MEDS: Cyanocobalamin (B-12) 1,000 MCG TABLET PO SCH (09:21)
[2019-02-02] MEDS: Cholecalciferol (D-3) 1,000 UNIT (25MCG) TABLET PO SCH (09:21)
[2019-02-02] MEDS: amLODIPine 5 MG TABLET PO SCH (09:22)
[2019-02-02] MEDS: hydroCHLOROthiazide 25 MG TABLET PO SCH (09:23)
[2019-02-02] MEDS: Piperacillin/Tazobactam 3.375 GM in 0.9 % Sodium Chloride Mini Bag 100 ML IVPB SCH ×2 (09:23→17:33)
[2019-02-03] MEDS: Piperacillin/Tazobactam 3.375 GM in 0.9 % Sodium Chloride Mini Bag 100 ML IVPB SCH (00:41)
[2019-02-03] MEDS: *HR* Heparin 5,000 UNIT/ML VIAL SQ SCH (06:20)
[2019-02-03 06:46] VITALS: BP 145/74
[2019-02-03] MEDS: amLODIPine 5 MG TABLET PO SCH (09:41)
[2019-02-03] MEDS: Cyanocobalamin (B-12) 1,000 MCG TABLET PO SCH (09:41)
[2019-02-03] MEDS: hydroCHLOROthiazide 25 MG TABLET PO SCH (09:42)
[2019-02-03] MEDS: Fenofibrate 54 MG TABLET PO SCH (09:42)
[2019-02-03] MEDS: Cholecalciferol (D-3) 1,000 UNIT (25MCG) TABLET PO SCH (09:42)
[2019-02-03] MEDS ORDERED: metroNIDAZOLE 500 MG TABLET PO SCH (12:00)
[2019-02-03] MEDS ORDERED: Aminoglycoside Consult 1 EACH MC ONE (13:39)
== END 2019-02-03 13:40 | disposition home or self-care (01) | DRG 863 ==
LOC: EMEROOARM 10:48 → 3ANU 10:48 → SUATTDRO 15:31 → 3ANU 16:30
PROVIDERS: ADMIT Student in an Organized Health Care Education/Training Program; ATTEND Internal Medicine

== ENCOUNTER 2020-05-31 16:03 | Observation (INO) ==
[2020-05-31 18:53] LABS: Basophils % 0.3 %; Eosinophils # 0.2 K/mcL (0.0-0.6); Eosinophils % 3.2 %; Hematocrit 40.5 % (35.3-44.9); Hemoglobin 13.2 g/dL (11.5-15.4); Immature Granulocytes % 0.3 % (0-4); Lymphocytes # 2.2 K/mcL (0.6-4.6); Lymphocytes % 29.1 %; Mean Corpuscular HGB Conc 32.6 g/dL (31.6-35.5); Mean Corpuscular Hemoglobin 30.3 pg (28.0-33.3); Mean Corpuscular Volume 93.1 fL (83.0-100.0); Mean Platelet Volume 9.7 fL (9.4-12.4); Monocytes # 0.6 K/mcL (0.0-1.3); Monocytes % 8.6 %; Neutrophils # 4.3 K/mcL (1.6-8.9); Platelet Count 304 K/mcL (140-400); Red Blood Count 4.35 M/mcL (3.82-4.97); Red Cell Distribution Width 13.1 % (11.5-14.5); Segmented Neutrophils % 58.5 %; White Blood Count 7.4 K/mcL (4.3-11.1)
[2020-05-31 19:02] LABS: BUN/Creatinine Ratio 19 (6-26); Blood Urea Nitrogen 11 mg/dL (8-23); Calcium 9.6 mg/dL (8.6-10.3); Carbon Dioxide 26 mEq/L (23-29); Chloride 99 mEq/L (98-107); Glucose 137 mg/dL (70-105); Magnesium 1.9 mg/dL (1.6-2.6); Osmolality,Calculated 284 (280-300); Potassium 3.7 mEq/L (3.5-5.1); Sodium 136 mEq/L (136-145); eGFR For African Americans > 60 (> 60); eGFR For Non-African Americans > 60 (> 60)
[2020-05-31 19:03] LABS: Troponin I < 0.03 ng/mL (< 0.04)
[2020-05-31 19:05] LABS: INR 1.2; Prothrombin Time 14.2 Seconds (9.4-12.1)
[2020-05-31 19:16] LABS: Thyroid Stimulating Hormone 0.925 mcIU/mL (0.340-5.600)
[2020-05-31 20:05] LABS: Bilirubin,Urine Negative (Negative); Blood,Urine Negative (Negative); Clarity,Urine Clear (Clear); Color,Urine Light-Yellow (Yellow); Glucose,Urine (UA) Normal (Normal); Ketones,Urine Negative (Negative); Leukocyte Esterase,Urine Negative (Negative); Nitrite,Urine Negative (Negative); Protein,Urine Negative (Neg-Trace); Specific Gravity,Urine 1.009 (1.010-1.025); Urobilinogen,Urine Normal (Normal)
[2020-05-31] MEDS ORDERED: Aspirin 81 MG TAB.CHEW PO ONE (20:08)
[2020-05-31] MEDS ORDERED: Naloxone 0.4 MG/ML INJ IVP PRN (20:39)
[2020-05-31] MEDS ORDERED: Perflutren Lipid Microsphere 1.3 ML in 0.9 % Sodium Chloride 8.7 ML IVP PRN (20:42)
[2020-05-31] MEDS ORDERED: *HR* OxyCODONE/APAP 10/325 TABLET PO PRN (21:26)
[2020-06-01 05:24] LABS: Basophils % 0.3 %; Eosinophils # 0.3 K/mcL (0.0-0.6); Eosinophils % 3.6 %; Hematocrit 39.6 % (35.3-44.9); Hemoglobin 13.1 g/dL (11.5-15.4); Immature Granulocytes % 0.3 % (0-4); Lymphocytes # 2.8 K/mcL (0.6-4.6); Lymphocytes % 37.6 %; Mean Corpuscular HGB Conc 33.1 g/dL (31.6-35.5); Mean Corpuscular Hemoglobin 29.6 pg (28.0-33.3); Mean Corpuscular Volume 89.4 fL (83.0-100.0); Monocytes # 0.8 K/mcL (0.0-1.3); Monocytes % 10.5 %; Neutrophils # 3.5 K/mcL (1.6-8.9); Platelet Count 285 K/mcL (140-400); Red Blood Count 4.43 M/mcL (3.82-4.97); Segmented Neutrophils % 47.7 %; White Blood Count 7.4 K/mcL (4.3-11.1)
[2020-06-01 05:36] LABS: BUN/Creatinine Ratio 25 (6-26); Blood Urea Nitrogen 13 mg/dL (8-23); Calcium 9.7 mg/dL (8.6-10.3); Carbon Dioxide 28 mEq/L (23-29); Chloride 99 mEq/L (98-107); Glucose 141 mg/dL (70-105); Osmolality,Calculated 284 (280-300); Potassium 3.5 mEq/L (3.5-5.1); Sodium 136 mEq/L (136-145); eGFR For African Americans > 60 (> 60); eGFR For Non-African Americans > 60 (> 60)
[2020-06-01] MEDS ORDERED: atenoloL 50 MG TABLET PO SCH (09:00)
[2020-06-01] MEDS ORDERED: Cyanocobalamin (B-12) 1,000 MCG TABLET PO SCH (09:00)
[2020-06-01] MEDS ORDERED: amLODIPine 5 MG TABLET PO SCH (09:00)
[2020-06-01] MEDS ORDERED: Cholecalciferol (D-3) 1,000 UNIT (25MCG) TABLET PO SCH (09:00)
[2020-06-01] MEDS ORDERED: Fenofibrate 54 MG TABLET PO SCH (09:00)
[2020-06-01] MEDS ORDERED: hydroCHLOROthiazide 25 MG TABLET PO SCH (09:00)
[2020-06-01] MEDS ORDERED: NON-FORMULARY MEDICATION 1 EACH EACH (Ezetimibe [Zetia] 10 MG Tablet) PO SCH (09:00)
[2020-06-01 11:10] VITALS: BP 128/66
== END 2020-06-01 13:37 | disposition home or self-care (01) ==
LOC: EMEROOARM 16:03 → 3BNU 16:03 → SUATTDRO 21:01 → 3BNU 22:10
PROVIDERS: ADMIT Internal Medicine; ATTEND Internal Medicine

== ENCOUNTER 2021-02-04 06:07 | Inpatient (IN) ==
[2021-02-04] MEDS ORDERED: Ringers Solution, Lactated 1,000 ML IVC SCH (06:30)
[2021-02-04] MEDS ORDERED: Lidocaine HCL 4 ML Topical Solution (Laryng-O-Jet Kit Sterile Pak) TP ONE (06:53)
[2021-02-04] MEDS ORDERED: *HR* Propofol 200 MG/20 ML VIAL IVP ONE (07:00)
[2021-02-04] MEDS ORDERED: *HR* Succinylcholine 200 MG/10 ML VIAL IVP ONE (07:00)
[2021-02-04] MEDS ORDERED: Ondansetron 4 MG/2 ML VIAL ONE (07:00)
[2021-02-04] MEDS ORDERED: Lidocaine -MPF 2% 5 ML VIAL ONE (07:00)
[2021-02-04] MEDS ORDERED: *HR* FentaNYL (PF) 100 MCG/2 ML VIAL ONE (07:00)
[2021-02-04] MEDS ORDERED: *HR* Rocuronium Bromide 50 MG/5 ML VIAL ONE (07:00)
[2021-02-04] MEDS ORDERED: *HR* Labetalol 20 MG/4 ML SYRINGE IVP PRN (07:29)
[2021-02-04] MEDS ORDERED: Pregabalin 75 MG CAPSULE PO ONE (07:29)
[2021-02-04] MEDS ORDERED: *HR* OxyCODONE Immed Rel 5 MG TABLET PO PRN (07:29)
[2021-02-04] MEDS ORDERED: *HR* HYDROmorphone 2 MG TABLET PO PRN ×2 (07:29→10:50)
[2021-02-04] MEDS ORDERED: Acetaminophen IV 1,000 MG/100 ML BAG IVPB ONE (07:29)
[2021-02-04] MEDS ORDERED: Famotidine 20 MG/2 ML VIAL IVP ONE (07:29)
[2021-02-04] MEDS ORDERED: Calcium Gluconate 1,000 MG/10 ML VIAL ONE (08:17)
[2021-02-04] MEDS ORDERED: EPHEDrine 50 MG/ML VIAL ONE (08:20)
[2021-02-04] MEDS ORDERED: Ondansetron 4 MG/2 ML VIAL IVP PRN ×2 (09:06→10:50)
[2021-02-04] MEDS ORDERED: polyethylene glycoL 3350 17 GM POWD.PACK PO PRN ×2 (09:06→10:50)
[2021-02-04] MEDS ORDERED: *HR* Metoprolol 5 MG/5 ML VIAL IVP PRN ×2 (09:06→10:50)
[2021-02-04] MEDS ORDERED: Naloxone 0.4 MG/ML INJ IVP PRN ×2 (09:06→10:50)
[2021-02-04] MEDS ORDERED: *HR* OxyCODONE/APAP 10/325 TABLET PO PRN (09:07)
[2021-02-04] MEDS: *HR* HYDROmorphone (PF) 1 MG/ML SYRINGE IVP PRN ×2 (09:30→09:55)
[2021-02-04] MEDS: EZETIMIBE 10 MG PO SCH (13:25)
[2021-02-04] MEDS ORDERED: Piperacillin/Tazobactam 3.375 GM in 0.9 % Sodium Chloride Mini Bag 100 ML IVPB SCH (16:00)
[2021-02-04] MEDS: Piperacillin/Tazobactam 3.375 GM in 0.9 % Sodium Chloride Mini Bag 100 ML IVPB SCH (16:43)
[2021-02-05] MEDS: Piperacillin/Tazobactam 3.375 GM in 0.9 % Sodium Chloride Mini Bag 100 ML IVPB SCH ×3 (00:43→16:45)
[2021-02-05 03:49] LABS: Basophils % 0.1 %; Eosinophils # 0.1 K/mcL (0.0-0.6); Eosinophils % 1.7 %; Hematocrit 31.9 % (35.3-44.9); Hemoglobin 10.2 g/dL (11.5-15.4); Immature Granulocytes % 0.3 % (0-4); Lymphocytes # 1.5 K/mcL (0.6-4.6); Lymphocytes % 20.9 %; Mean Corpuscular Hemoglobin 31.3 pg (28.0-33.3); Mean Corpuscular Volume 97.9 fL (83.0-100.0); Monocytes # 0.7 K/mcL (0.0-1.3); Neutrophils # 4.9 K/mcL (1.6-8.9); Platelet Count 207 K/mcL (140-400); Red Blood Count 3.26 M/mcL (3.82-4.97); Red Cell Distribution Width 13.2 % (11.5-14.5); White Blood Count 7.2 K/mcL (4.3-11.1)
[2021-02-05] MEDS: *HR* OxyCODONE/APAP 10/325 TABLET PO PRN ×3 (05:07→20:16)
[2021-02-05] MEDS ORDERED: Fenofibrate 54 MG TABLET PO SCH (09:00)
[2021-02-05] MEDS ORDERED: atenoloL 50 MG TABLET PO SCH (09:00)
[2021-02-05] MEDS ORDERED: NON-FORMULARY MEDICATION 1 EACH EACH (Ezetimibe [Zetia] 10 MG) PO SCH (09:00)
[2021-02-05] MEDS ORDERED: amLODIPine 5 MG TABLET PO SCH (09:00)
[2021-02-05] MEDS ORDERED: hydroCHLOROthiazide 25 MG TABLET PO SCH (09:00)
[2021-02-05] MEDS: atenoloL 50 MG TABLET PO SCH (09:19)
[2021-02-05] MEDS: hydroCHLOROthiazide 25 MG TABLET PO SCH (09:20)
[2021-02-05] MEDS: amLODIPine 5 MG TABLET PO SCH (09:23)
[2021-02-05] MEDS: EZETIMIBE 10 MG PO SCH (09:27)
[2021-02-05] MEDS: Fenofibrate 54 MG TABLET PO SCH (09:36)
[2021-02-06] MEDS: *HR* OxyCODONE/APAP 10/325 TABLET PO PRN (00:29)
[2021-02-06] MEDS: Piperacillin/Tazobactam 3.375 GM in 0.9 % Sodium Chloride Mini Bag 100 ML IVPB SCH ×2 (00:29→10:27)
[2021-02-06] MEDS: hydroCHLOROthiazide 25 MG TABLET PO SCH (10:25)
[2021-02-06] MEDS: amLODIPine 5 MG TABLET PO SCH (10:25)
[2021-02-06] MEDS: atenoloL 50 MG TABLET PO SCH (10:25)
[2021-02-06] MEDS: Fenofibrate 54 MG TABLET PO SCH (10:26)
[2021-02-06] MEDS: EZETIMIBE 10 MG PO SCH (10:26)
[2021-02-06 11:34] VITALS: BP 132/68; PULSE 62; TEMP 97.8; O2SAT 95
== END 2021-02-06 13:36 | disposition home or self-care (01) | DRG 909 ==
LOC: SAMDAY 06:07 → 3ANU 07:35
PROVIDERS: ADMIT Surgery; ATTEND Surgery

== ENCOUNTER 2021-08-19 13:31 | Inpatient (IN) ==
[2021-08-19 17:51] LABS: Bilirubin,Urine Negative (Negative); Blood,Urine Negative (Negative); Clarity,Urine Turbid (Clear); Color,Urine Yellow (Yellow); Glucose,Urine (UA) Normal (Normal); Hyaline Casts,Urine Many per lpf (None Seen); Ketones,Urine Negative (Negative); Leukocyte Esterase,Urine Trace (Negative); Mucus,Urine Moderate per lpf (None-Few); Nitrite,Urine Negative (Negative); PH,Urine 5.5 pH Units (5.0-8.0); Protein,Urine 30 mg/dL (Neg-Trace); RBC,Urine 0-3 per hpf (0-3); Specific Gravity,Urine 1.026 (1.010-1.025); Squamous Epithelial Cell,Urine Few per hpf (None-Few)
[2021-08-19 18:14] LABS: Basophils % 0.2 %; Eosinophils # 0.3 K/mcL (0.0-0.6); Eosinophils % 3.3 %; Hematocrit 36.2 % (35.3-44.9); Immature Granulocytes % 0.2 % (0-4); Lymphocytes # 2.7 K/mcL (0.6-4.6); Lymphocytes % 33.1 %; Mean Corpuscular HGB Conc 33.1 g/dL (31.6-35.5); Mean Corpuscular Volume 93.5 fL (83.0-100.0); Mean Platelet Volume 9.4 fL (9.4-12.4); Monocytes # 0.7 K/mcL (0.0-1.3); Monocytes % 8.4 %; Neutrophils # 4.5 K/mcL (1.6-8.9); Platelet Count 274 K/mcL (140-400); Red Blood Count 3.87 M/mcL (3.82-4.97); Segmented Neutrophils % 54.8 %; White Blood Count 8.3 K/mcL (4.3-11.1)
[2021-08-19 18:53] LABS: Alanine Aminotransferase 8 Units/L (7-52); Albumin 4.3 g/dL (3.5-5.7); Albumin/Globulin Ratio 1.2 (1.1-2.2); Alkaline Phosphatase 53 Units/L (34-104); Aspartate Amino Transferase 38 Units/L (13-39); BUN/Creatinine Ratio 25 (6-26); Bilirubin,Total 0.9 mg/dL (0.3-1.0); Blood Urea Nitrogen 21 mg/dL (8-23); Calcium 9.8 mg/dL (8.6-10.3); Carbon Dioxide 21 mEq/L (23-29); Chloride 102 mEq/L (98-107); Globulin 3.7 g/dL (2.4-3.5); Glucose 87 mg/dL (70-105); Osmolality,Calculated 284 (280-300); Potassium 3.6 mEq/L (3.5-5.1); Sodium 136 mEq/L (136-145); Thyroid Stimulating Hormone 2.036 mcIU/mL (0.340-5.600); Troponin I < 0.03 ng/mL (< 0.04); eGFR For African Americans > 60 (> 60); eGFR For Non-African Americans > 60 (> 60)
[2021-08-19] MEDS ORDERED: Isovue-370 500 ML BOTTLE IVP ONE (19:21)
[2021-08-19] MEDS ORDERED: Aspirin 81 MG TAB.CHEW PO STA (22:18)
[2021-08-19] MEDS ORDERED: Ondansetron 4 MG/2 ML VIAL IVP PRN (23:05)
[2021-08-19] MEDS ORDERED: Melatonin 3 MG TABLET PO PRN (23:05)
[2021-08-19] MEDS ORDERED: Acetaminophen 325 MG TABLET PO PRN (23:05)
[2021-08-19] MEDS ORDERED: Naloxone 0.4 MG/ML INJ IVP PRN (23:05)
[2021-08-20] MEDS ORDERED: Perflutren Lipid Microsphere 1.3 ML in 0.9 % Sodium Chloride 8.7 ML IVP PRN (00:05)
[2021-08-20 02:05] LABS: Hematocrit 34.9 % (35.3-44.9); Hemoglobin 11.7 g/dL (11.5-15.4); Mean Corpuscular HGB Conc 33.5 g/dL (31.6-35.5); Mean Corpuscular Hemoglobin 30.9 pg (28.0-33.3); Mean Corpuscular Volume 92.1 fL (83.0-100.0); Mean Platelet Volume 9.5 fL (9.4-12.4); Platelet Count 237 K/mcL (140-400); Red Blood Count 3.79 M/mcL (3.82-4.97); Red Cell Distribution Width 13.9 % (11.5-14.5); White Blood Count 7.8 K/mcL (4.3-11.1)
[2021-08-20 02:13] LABS: INR 1.2; Prothrombin Time 13.3 Seconds (9.4-12.1)
[2021-08-20 02:15] LABS: Activated Partial Thrombo Time 29.1 Seconds (26.0-36.0)
[2021-08-20 02:21] LABS: BUN/Creatinine Ratio 28 (6-26); Blood Urea Nitrogen 22 mg/dL (8-23); Calcium 9.6 mg/dL (8.6-10.3); Carbon Dioxide 25 mEq/L (23-29); Chloride 100 mEq/L (98-107); Glucose 131 mg/dL (70-105); Magnesium 1.8 mg/dL (1.6-2.6); Osmolality,Calculated 289 (280-300); Phosphorous 3.3 mg/dL (2.7-4.5); Potassium 3.3 mEq/L (3.5-5.1); Sodium 137 mEq/L (136-145); eGFR For African Americans > 60 (> 60); eGFR For Non-African Americans > 60 (> 60)
[2021-08-20 02:25] LABS: Alanine Aminotransferase 10 Units/L (7-52); Albumin 3.9 g/dL (3.5-5.7); Albumin/Globulin Ratio 1.1 (1.1-2.2); Alkaline Phosphatase 50 Units/L (34-104); Aspartate Amino Transferase 34 Units/L (13-39); BUN/Creatinine Ratio 29 (6-26); Bilirubin,Total 0.8 mg/dL (0.3-1.0); Blood Urea Nitrogen 23 mg/dL (8-23); Calcium 9.5 mg/dL (8.6-10.3); Carbon Dioxide 23 mEq/L (23-29); Chloride 100 mEq/L (98-107); Chol/HDL Ratio 4.9 (0-4.9); Cholesterol 64 mg/dL (< 200); Globulin 3.6 g/dL (2.4-3.5); Glucose 142 mg/dL (70-105); HDL Cholesterol 13 mg/dL (40-59); LDL Cholesterol,Calculated 9 mg/dL (< 100); Osmolality,Calculated 290 (280-300); Potassium 3.2 mEq/L (3.5-5.1); Sodium 137 mEq/L (136-145); Total Protein 7.5 g/dL (6.4-8.9); Triglycerides 208 mg/dL (< 150); eGFR For African Americans > 60 (> 60); eGFR For Non-African Americans > 60 (> 60)
[2021-08-20 02:27] LABS: Estimated Average Glucose 108 mg/dl; Hemoglobin A1C 5.4 %
[2021-08-20 02:46] LABS: Folate 8.9 ng/mL (3.0-16.0)
[2021-08-20] MEDS ORDERED: Dextrose 4 GM Chewable Tablets PO PRN ×2 (05:20)
[2021-08-20] MEDS ORDERED: *HR* Dextrose 50 % in Water (Syg) 50 ML SYRINGE IVP PRN (05:20)
[2021-08-20] MEDS ORDERED: D5% in Water 1,000 ML IVC PRN (05:20)
[2021-08-20] MEDS: Aspirin Enteric Coated 81 MG Tablet PO SCH (08:24)
[2021-08-20] MEDS: Cholecalciferol (D-3) 1,000 UNIT (25MCG) TABLET PO SCH (08:24)
[2021-08-20] MEDS: Cyanocobalamin (B-12) 1,000 MCG TABLET PO SCH (08:26)
[2021-08-20] MEDS ORDERED: Cyanocobalamin (B-12) 1,000 MCG/ML VIAL SQ ONE (08:31)
[2021-08-20] MEDS ORDERED: cefTRIAXone 1,000 MG in 0.9 % Sodium Chloride Mini Bag 100 ML IVPB SCH (09:00)
[2021-08-20] MEDS ORDERED: Lactobacillus 1 EACH CAP.SPRINK PO SCH (09:00)
[2021-08-20] MEDS: *HR* Heparin 5,000 UNIT/ML VIAL SQ SCH (17:19)
[2021-08-21 03:15] LABS: BUN/Creatinine Ratio 29 (6-26); Blood Urea Nitrogen 22 mg/dL (8-23); Carbon Dioxide 24 mEq/L (23-29); Chloride 103 mEq/L (98-107); Glucose 100 mg/dL (70-105); Osmolality,Calculated 287 (280-300); Potassium 3.6 mEq/L (3.5-5.1); Sodium 137 mEq/L (136-145); eGFR For African Americans > 60 (> 60); eGFR For Non-African Americans > 60 (> 60)
[2021-08-21] MEDS: *HR* Heparin 5,000 UNIT/ML VIAL SQ SCH (05:53)
[2021-08-21] MEDS: Cyanocobalamin (B-12) 1,000 MCG TABLET PO SCH (08:02)
[2021-08-21] MEDS: Aspirin Enteric Coated 81 MG Tablet PO SCH (08:02)
[2021-08-21] MEDS: Cholecalciferol (D-3) 1,000 UNIT (25MCG) TABLET PO SCH (08:02)
[2021-08-21] MEDS ORDERED: atenoloL 50 MG TABLET PO SCH ×2 (09:00)
[2021-08-21] MEDS ORDERED: amLODIPine 5 MG TABLET PO SCH (09:00)
[2021-08-21 11:50] VITALS: BP 141/58; PULSE 62; O2SAT 98
[2021-08-21 11:53] VITALS: TEMP 97.8
== END 2021-08-21 15:44 | disposition home health service (06) | DRG 66 ==
LOC: 2NENU 13:31 → EMEROOARM 13:31 → SUATTDRO 23:05 → 2NENU 08-20 00:38
PROVIDERS: ADMIT Internal Medicine; ATTEND Internal Medicine

== ENCOUNTER 2021-11-13 16:54 | Observation (INO) ==
[2021-11-13] MEDS ORDERED: Aspirin 325 MG TABLET PO ONE (17:41)
[2021-11-13 18:09] LABS: Bilirubin,Urine Negative (Negative); Blood,Urine Negative (Negative); Clarity,Urine Clear (Clear); Color,Urine Light-Yellow (Yellow); Glucose,Urine (UA) Normal (Normal); Ketones,Urine Negative (Negative); Leukocyte Esterase,Urine Negative (Negative); Nitrite,Urine Negative (Negative); Protein,Urine Negative (Neg-Trace); Specific Gravity,Urine 1.015 (1.010-1.025)
[2021-11-13 18:14] LABS: Basophils % 0.2 %; Eosinophils # 0.3 K/mcL (0.0-0.6); Eosinophils % 4.6 %; Hematocrit 32.1 % (35.3-44.9); Hemoglobin 10.6 g/dL (11.5-15.4); Immature Granulocytes % 0.2 % (0-4); Lymphocytes # 1.7 K/mcL (0.6-4.6); Lymphocytes % 29.7 %; Mean Corpuscular Hemoglobin 31.5 pg (28.0-33.3); Mean Corpuscular Volume 95.3 fL (83.0-100.0); Mean Platelet Volume 9.3 fL (9.4-12.4); Monocytes # 0.8 K/mcL (0.0-1.3); Monocytes % 13.7 %; Neutrophils # 2.9 K/mcL (1.6-8.9); Platelet Count 233 K/mcL (140-400); Red Blood Count 3.37 M/mcL (3.82-4.97); Red Cell Distribution Width 12.4 % (11.5-14.5); Segmented Neutrophils % 51.6 %; White Blood Count 5.6 K/mcL (4.3-11.1)
[2021-11-13 18:22] LABS: INR 1.2; Prothrombin Time 13.4 Seconds (9.4-12.1)
[2021-11-13 18:25] LABS: Activated Partial Thrombo Time 34.3 Seconds (26.0-36.0)
[2021-11-13 18:33] LABS: Alanine Aminotransferase 8 Units/L (7-52); Albumin 3.8 g/dL (3.5-5.7); Albumin/Globulin Ratio 1.2 (1.1-2.2); Alkaline Phosphatase 41 Units/L (34-104); Aspartate Amino Transferase 21 Units/L (13-39); BUN/Creatinine Ratio 23 (6-26); Bilirubin,Direct 0.2 mg/dL (0.0-0.2); Bilirubin,Indirect 0.2 mg/dL (0.0-1.0); Bilirubin,Total 0.4 mg/dL (0.3-1.0); Blood Urea Nitrogen 18 mg/dL (8-23); Calcium 9.5 mg/dL (8.6-10.3); Carbon Dioxide 27 mEq/L (23-29); Chloride 105 mEq/L (98-107); Globulin 3.2 g/dL (2.4-3.5); Glucose 96 mg/dL (70-105); Lipase 69 Units/L (11-82); Osmolality,Calculated 290 (280-300); Potassium 3.8 mEq/L (3.5-5.1); Sodium 139 mEq/L (136-145); Troponin I < 0.03 ng/mL (< 0.04)
[2021-11-13] MEDS ORDERED: tiZANidine 4 MG TABLET PO PRN (21:24)
[2021-11-13] MEDS ORDERED: *HR* Dextrose 50 % in Water (Syg) 50 ML SYRINGE IVP PRN (21:29)
[2021-11-13] MEDS ORDERED: Dextrose Gel 15 GM/37.5 ML TUBE PO PRN ×2 (21:29)
[2021-11-13] MEDS ORDERED: D5% in Water 1,000 ML IVC PRN (21:29)
[2021-11-13] MEDS ORDERED: Ondansetron 4 MG/2 ML VIAL IVP PRN (21:30)
[2021-11-13] MEDS ORDERED: Naloxone 0.4 MG/ML INJ IVP PRN (21:30)
[2021-11-13] MEDS ORDERED: Acetaminophen 325 MG TABLET PO PRN (21:30)
[2021-11-13] MEDS ORDERED: Nitroglycerin 0.4 MG TAB.SUBL SL PRN (22:53)
[2021-11-13] MEDS ORDERED: Morphine Sulfate 2 MG/ML SYRINGE IVP PRN (22:53)
[2021-11-14] MEDS: Insulin LISPRO 300 UNITS/3 ML VIAL SUBQ SCH ×3 (00:50→12:05)
[2021-11-14] MEDS ORDERED: *HR* Heparin 5,000 UNIT/ML VIAL SQ SCH (06:00)
[2021-11-14] MEDS ORDERED: Regadenoson 0.4 MG/5 ML SYRINGE IVP ONE (06:09)
[2021-11-14 06:36] LABS: INR 1.2; Prothrombin Time 13.2 Seconds (9.4-12.1)
[2021-11-14 06:38] LABS: Activated Partial Thrombo Time 32.6 Seconds (26.0-36.0)
[2021-11-14 06:41] LABS: Calcium 9.2 mg/dL (8.6-10.3); Chol/HDL Ratio 3.6 (0-4.9); Magnesium 2.2 mg/dL (1.6-2.6); Potassium 3.9 mEq/L (3.5-5.1)
[2021-11-14 07:12] LABS: Hematocrit 33.1 % (35.3-44.9); Hemoglobin 10.8 g/dL (11.5-15.4); Mean Corpuscular HGB Conc 32.6 g/dL (31.6-35.5); Mean Corpuscular Hemoglobin 31.7 pg (28.0-33.3); Mean Corpuscular Volume 97.1 fL (83.0-100.0); Mean Platelet Volume 9.4 fL (9.4-12.4); Platelet Count 239 K/mcL (140-400); Red Blood Count 3.41 M/mcL (3.82-4.97); Red Cell Distribution Width 12.6 % (11.5-14.5); White Blood Count 4.8 K/mcL (4.3-11.1)
[2021-11-14 07:37] LABS: % Iron Saturation 9 % (15-50); Iron 47 mcg/dL (50-170); Transferrin 364 mg/dL (203-362); Troponin I < 0.03 ng/mL (< 0.04)
[2021-11-14 07:49] LABS: Thyroid Stimulating Hormone 0.551 mcIU/mL (0.340-5.600)
[2021-11-14 07:55] LABS: Ferritin 100 ng/mL (10-120)
[2021-11-14 08:08] LABS: Folate 7.3 ng/mL (3.0-16.0)
[2021-11-14] MEDS ORDERED: amLODIPine 5 MG TABLET PO SCH (09:00)
[2021-11-14] MEDS ORDERED: Aspirin Enteric Coated 81 MG Tablet PO SCH (09:00)
[2021-11-14] MEDS ORDERED: hydroCHLOROthiazide 25 MG TABLET PO SCH (09:00)
[2021-11-14] MEDS ORDERED: Fenofibrate 54 MG TABLET PO SCH (09:00)
[2021-11-14] MEDS ORDERED: (Ezetimibe [Zetia] 10 MG Tablet) PO SCH (09:00)
[2021-11-14] MEDS ORDERED: Cyanocobalamin (B-12) 1,000 MCG TABLET PO SCH (09:00)
[2021-11-14] MEDS ORDERED: Cholecalciferol (D-3) 1,000 UNIT (25MCG) TABLET PO SCH (09:00)
[2021-11-14 09:12] LABS: Estimated Average Glucose 94 mg/dl; Hemoglobin A1C 4.9 %
[2021-11-14 11:27] VITALS: BP 106/52; PULSE 59; TEMP 97.9; O2SAT 98
== END 2021-11-14 14:48 | disposition home or self-care (01) ==
LOC: EMEROOARM 16:54 → 3BNU 16:54 → SUATTDRO 20:30 → 3BNU 22:40
PROVIDERS: ADMIT Internal Medicine; ATTEND Internal Medicine

== ENCOUNTER 2022-01-18 15:06 | Inpatient (IN) ==
[2022-01-18 16:01] LABS: INR 1.2; Prothrombin Time 13.1 Seconds (9.4-12.1)
[2022-01-18 16:23] LABS: BUN/Creatinine Ratio 21 (6-26); Blood Urea Nitrogen 21 mg/dL (8-23); Calcium 9.7 mg/dL (8.6-10.3); Carbon Dioxide 28 mEq/L (23-29); Chloride 103 mEq/L (98-107); Glucose 108 mg/dL (70-105); Osmolality,Calculated 288 (280-300); Sodium 137 mEq/L (136-145)
[2022-01-18 16:36] LABS: Troponin I < 0.03 ng/mL (< 0.04)
[2022-01-18 16:40] LABS: Hemoglobin 12.3 g/dL (11.5-15.4); Mean Corpuscular HGB Conc 32.4 g/dL (31.6-35.5); Mean Corpuscular Hemoglobin 30.5 pg (28.0-33.3); Mean Corpuscular Volume 94.3 fL (83.0-100.0); Mean Platelet Volume 8.9 fL (9.4-12.4); Platelet Count 254 K/mcL (140-400); Red Blood Count 4.03 M/mcL (3.82-4.97); Red Cell Distribution Width 12.7 % (11.5-14.5); White Blood Count 10.7 K/mcL (4.3-11.1)
[2022-01-18] MEDS ORDERED: Piperacillin/Tazobactam 3.375 GM in 0.9 % Sodium Chloride Mini Bag 100 ML IVPB ONE (17:01)
[2022-01-18 17:42] LABS: Bilirubin,Urine Negative (Negative); Blood,Urine Negative (Negative); Clarity,Urine Clear (Clear); Color,Urine Light-Yellow (Yellow); Glucose,Urine (UA) Normal (Normal); Hyaline Casts,Urine Moderate per lpf (None Seen); Ketones,Urine Negative (Negative); Leukocyte Esterase,Urine Negative (Negative); Mucus,Urine Few per lpf (None-Few); Nitrite,Urine Negative (Negative); Protein,Urine 30 mg/dL (Neg-Trace); RBC,Urine 0-3 per hpf (0-3); Squamous Epithelial Cell,Urine Few per hpf (None-Few); WBC,Urine 0-3 per hpf (0-3)
[2022-01-18] MEDS ORDERED: D5% in Water 1,000 ML IVC PRN (17:53)
[2022-01-18] MEDS ORDERED: Dextrose Gel 15 GM/37.5 ML TUBE PO PRN ×2 (17:53)
[2022-01-18] MEDS ORDERED: *HR* Dextrose 50 % in Water (Syg) 50 ML SYRINGE IVP PRN (17:53)
[2022-01-18 18:23] LABS: Influenza A PCR Negative (Negative); Influenza B PCR Negative (Negative); Resp. Syncytial Virus PCR Negative (Negative); SARS-CoV-2 by PCR (In House) Negative (Negative)
[2022-01-18] MEDS ORDERED: tiZANidine 4 MG TABLET PO PRN (18:29)
[2022-01-18] MEDS ORDERED: *HR* Labetalol 20 MG/4 ML SYRINGE IVP PRN (18:30)
[2022-01-18] MEDS: Piperacillin/Tazobactam 3.375 GM in 0.9 % Sodium Chloride Mini Bag 100 ML IVPB SCH (23:37)
[2022-01-19 01:55] LABS: Alanine Aminotransferase 9 Units/L (7-52); Albumin 4.1 g/dL (3.5-5.7); Albumin/Globulin Ratio 1.2 (1.1-2.2); Alkaline Phosphatase 45 Units/L (34-104); Aspartate Amino Transferase 23 Units/L (13-39); BUN/Creatinine Ratio 33 (6-26); Bilirubin,Total 0.6 mg/dL (0.3-1.0); Blood Urea Nitrogen 23 mg/dL (8-23); Carbon Dioxide 24 mEq/L (23-29); Chloride 102 mEq/L (98-107); Chol/HDL Ratio 2.7 (0-4.9); Cholesterol 92 mg/dL (< 200); Globulin 3.4 g/dL (2.4-3.5); Glucose 146 mg/dL (70-105); HDL Cholesterol 34 mg/dL (40-59); LDL Cholesterol,Calculated 38 mg/dL (< 100); Osmolality,Calculated 288 (280-300); Potassium 3.6 mEq/L (3.5-5.1); Sodium 136 mEq/L (136-145); Total Protein 7.5 g/dL (6.4-8.9); Triglycerides 102 mg/dL (< 150)
[2022-01-19] MEDS ORDERED: Haloperidol Lactate 5 MG/ML VIAL IVP ONE (02:58)
[2022-01-19 03:14] LABS: Estimated Average Glucose 108 mg/dl; Hemoglobin A1C 5.4 %
[2022-01-19] MEDS: Piperacillin/Tazobactam 3.375 GM in 0.9 % Sodium Chloride Mini Bag 100 ML IVPB SCH ×3 (07:36→23:10)
[2022-01-19] MEDS: Insulin LISPRO 300 UNITS/3 ML VIAL SUBQ SCH ×3 (07:48→16:59)
[2022-01-19] MEDS: Cholecalciferol (D-3) 1,000 UNIT (25MCG) TABLET PO SCH (09:28)
[2022-01-19] MEDS: Aspirin Enteric Coated 81 MG Tablet PO SCH (09:28)
[2022-01-19] MEDS: Cyanocobalamin (B-12) 1,000 MCG TABLET PO SCH (09:28)
[2022-01-19] MEDS: Acetaminophen IV 500 MG/50 ML BAG IVPB PRN (15:07)
[2022-01-20 03:54] LABS: Basophils % 0.2 %; Eosinophils % 0.1 %; Immature Granulocytes % 0.3 % (0-4); Lymphocytes # 2.1 K/mcL (0.6-4.6); Lymphocytes % 17.9 %; Mean Corpuscular HGB Conc 34.3 g/dL (31.6-35.5); Mean Corpuscular Hemoglobin 30.8 pg (28.0-33.3); Mean Corpuscular Volume 89.7 fL (83.0-100.0); Mean Platelet Volume 8.7 fL (9.4-12.4); Monocytes # 1.2 K/mcL (0.0-1.3); Monocytes % 9.8 %; Neutrophils # 8.4 K/mcL (1.6-8.9); Platelet Count 252 K/mcL (140-400); Red Cell Distribution Width 12.9 % (11.5-14.5); Segmented Neutrophils % 71.7 %; White Blood Count 11.7 K/mcL (4.3-11.1)
[2022-01-20 04:10] LABS: BUN/Creatinine Ratio 34 (6-26); Blood Urea Nitrogen 24 mg/dL (8-23); Calcium 9.4 mg/dL (8.6-10.3); Carbon Dioxide 23 mEq/L (23-29); Chloride 103 mEq/L (98-107); Glucose 123 mg/dL (70-105); Osmolality,Calculated 287 (280-300); Potassium 3.1 mEq/L (3.5-5.1); Sodium 136 mEq/L (136-145)
[2022-01-20] MEDS: Insulin LISPRO 300 UNITS/3 ML VIAL SUBQ SCH ×3 (07:28→16:28)
[2022-01-20] MEDS: Acetaminophen IV 500 MG/50 ML BAG IVPB PRN (07:41)
[2022-01-20] MEDS: Piperacillin/Tazobactam 3.375 GM in 0.9 % Sodium Chloride Mini Bag 100 ML IVPB SCH ×2 (07:45→16:56)
[2022-01-20] MEDS: Cholecalciferol (D-3) 1,000 UNIT (25MCG) TABLET PO SCH (07:47)
[2022-01-20] MEDS: Cyanocobalamin (B-12) 1,000 MCG TABLET PO SCH (07:47)
[2022-01-20] MEDS: Aspirin Enteric Coated 81 MG Tablet PO SCH (07:47)
[2022-01-21] MEDS: Piperacillin/Tazobactam 3.375 GM in 0.9 % Sodium Chloride Mini Bag 100 ML IVPB SCH ×3 (00:56→16:01)
[2022-01-21] MEDS: Insulin LISPRO 300 UNITS/3 ML VIAL SUBQ SCH ×3 (08:12→16:57)
[2022-01-21] MEDS: Cholecalciferol (D-3) 1,000 UNIT (25MCG) TABLET PO SCH (08:21)
[2022-01-21] MEDS: Cyanocobalamin (B-12) 1,000 MCG TABLET PO SCH (08:21)
[2022-01-21] MEDS: atenoloL 50 MG TABLET PO SCH (08:22)
[2022-01-21] MEDS: Aspirin Enteric Coated 81 MG Tablet PO SCH (08:23)
[2022-01-21] MEDS: hydroCHLOROthiazide 25 MG TABLET PO SCH (08:23)
[2022-01-21] MEDS ORDERED: amLODIPine 5 MG TABLET PO SCH (09:00)
[2022-01-21] MEDS ORDERED: amLODIPine 5 MG TABLET PO ONE (12:07)
[2022-01-21] MEDS ORDERED: *HR* OxyCODONE/APAP 10/325 TABLET PO PRN (13:47)
[2022-01-21 14:15] LABS: Calcium 9.6 mg/dL (8.6-10.3)
[2022-01-21] MEDS ORDERED: 0.9 % Sodium Chloride Mini Bag 100 ML ONE (15:51)
[2022-01-22] MEDS: Piperacillin/Tazobactam 3.375 GM in 0.9 % Sodium Chloride Mini Bag 100 ML IVPB SCH ×2 (00:30→08:41)
[2022-01-22] MEDS: Aspirin Enteric Coated 81 MG Tablet PO SCH (08:38)
[2022-01-22] MEDS: Cholecalciferol (D-3) 1,000 UNIT (25MCG) TABLET PO SCH (08:38)
[2022-01-22] MEDS: Cyanocobalamin (B-12) 1,000 MCG TABLET PO SCH (08:38)
[2022-01-22] MEDS: hydroCHLOROthiazide 25 MG TABLET PO SCH (08:38)
[2022-01-22] MEDS: atenoloL 50 MG TABLET PO SCH (08:39)
[2022-01-22] MEDS: Insulin LISPRO 300 UNITS/3 ML VIAL SUBQ SCH ×2 (09:00→12:09)
[2022-01-22] MEDS ORDERED: amLODIPine 5 MG TABLET PO SCH (09:00)
[2022-01-22 15:18] VITALS: BP 130/58; PULSE 58; TEMP 97.4; O2SAT 98
[2022-01-22 16:41] LABS: Influenza A PCR Negative (Negative); Influenza B PCR Negative (Negative); Resp. Syncytial Virus PCR Negative (Negative)
[2022-01-22 16:54] LABS: SARS-CoV-2 by PCR (In House) Negative (Negative)
== END 2022-01-22 16:10 | DRG 193 ==
LOC: 3BNU 15:06 → EMEROOARM 15:06 → SUATTDRO 20:04 → 3BNU 20:49 → SUATTDRO 01-19 08:33 → 3BNU 01-22 14:31
PROVIDERS: ADMIT Internal Medicine; ATTEND Nurse Practitioner